=== PATIENT | female | born 1950 | race Caucasian/White ===

== ENCOUNTER 2018-10-16 08:05 | Day surgery (SDC) | payer MEDICARE, MEDICAID ==
[~2018-10-16] VITALS: Ht 160 cm; Wt 59.9 kg
[~2018-10-16 08:05] MED LIST: ALLERGY MEDICAT25 MG PO; ASPIR-LOW81 MG PO; ATORVASTATIN CA20 MG PO; BLEPH-105 ML OD; FISH OIL500 MG PO; NORCO 5-325 TA1 EACH PO; RED YEAST RICE600 M1 PO
--- NOTE | 2018-10-16 10:00 | NUR ---
10/16/18 1000 Sadia Collins 9418-PATIENT ARRIVED TO PACU ON 3L NC PLACED ON 2L. PATIENT REACTIVE TO VOICE OPENING EYES VERY DROWSY BACK TO SLEEP. ABDOMEN SOFT. RR EVEN.
--- NOTE | 2018-10-16 10:59 | NUR ---
ICED WATER AND COFFEE W/LID GIVEN. CALL LIGHT W/IN REACH. PATIENT'S PARTNER @ BS.
--- NOTE | 2018-10-16 11:38 | NUR ---
LE 1120: PATIENT'S PARTNER COMES TO THE NURSE'S STATION AND REPORTS PATIENT BELIVES SHE IS MUCH MORE AWAKE AND WOULD LIKE TO GET DRESSED. PATIENT IS NOTED TO BE SITTING UP IN BED, EYES WIDE OPEN, DRINKING HER COFFEE. DISCHARGE INSTRUCTIONS ARE GIVEN AND PATIENT VERBALIZES UNDERSTANDING. PATIENT STANDS AT THE BEDSIDE AND DENIES DIZZINESS. PATIENT DRESSES SELF AND TRANSFERS SELF TO AND THEN TO PERSONAL VEHICLE AND DOES THAT WELL AND IS DC HOME.
--- NOTE | 2018-10-17 05:38 | OR ---
[facility] [address] [place], [place] [address] Signed DATE OF OPERATION: 10/16/2018 SURGEON: Johnnie Estrada MD PREOPERATIVE DIAGNOSES: 1. Personal history of colonic polyps in 2015. 2. Diverticulosis. 3. Brother of colon cancer in his 50s. POSTOPERATIVE DIAGNOSIS: 1. 4 mm polyps at 38 cm, 32 cm, and 18 cm (x2). 2. Minimal internal anal skin tags. PROCEDURE: Colonoscopy with hot biopsy. ESTIMATED BLOOD LOSS: None. INDICATIONS: Sendy is a 67-year-old female, who returns now for followup colonoscopy. She had multiple colonic polyps removed in 2014. It took two colonoscopies to clear her polyps. In addition, her brother in his 50s from his colon cancer. Sendy was said to have diverticulosis as well. In the meantime, she says she is doing fine. She has no lower GI complaints. She is now retired and says she is doing great. I gave Sendy a pamphlet on colonoscopy and she understands the nature of that test along with the risks including, but not limited to gas bloating, crampy abdominal pain, bleeding, perforation, requiring surgery, and missed diagnosis. She also understands the need for IV conscious sedation. She had expressed understanding and wished to proceed. PROCEDURE NOTE: Sendy was taken into our endoscopy suite and placed in the left lateral decubitus position. She was given IV sedation with divided doses of 7 mg of Versed and 150 mcg of fentanyl. A digital rectal exam was performed and this was unremarkable. The adult colonoscope was introduced and advanced all around into the cecum under direct visualization of camera without difficulty. Her prep was quite good. The scope was slowly withdrawn. We took pictures throughout for photodocumentation. The appendiceal orifice and the ileocecal valve were easily visualized. The above-mentioned polyps were removed with the help of hot biopsy forceps. We could see other polypectomy sites that have since scarred. The scope had been retroflexed in the rectum. She has several Electronically Signed By: JOHNNIE ESTRADA MD 10/17/18 0538 PATIENT NAME: SENDY NIXON OPERATIVE REPORT DATE OF : 48 REPORT #: [id number] PHYSICIAN: JOHNNIE ESTRADA MD PCP: TIM BOWIE PA-C REPORT IS CONFIDENTIAL AND NOT TO BE RELEASED WITHOUT AUTHORIZATION [facility] [address] [place] [id number] Signed small internal anal skin tags. After this, the gas was suctioned out colonoscope removed. On this occasion, we did not specifically see any diverticula. Sendy tolerated the procedure quite well. RECOMMENDATIONS: I will see Sendy in my office in 7 to 14 days to review her results. It looks like Sendy is going to need colonoscopy every 5 years due to her family and personal history. Johnnie Estrada MD ALB/MODL /[id number] cc: MO Lee MD Copies: JOHNNIE ESTRADA MD ~ Electronically Signed By: JOHNNIE ESTRADA MD 10/17/18 0538 PATIENT NAME: SENDY NIXON OPERATIVE REPORT DATE OF : 48 REPORT #: [id number] PHYSICIAN: JOHNNIE ESTRADA MD PCP: TIM BOWIE PA-C REPORT IS CONFIDENTIAL AND NOT TO BE RELEASED WITHOUT AUTHORIZATION
== END 2018-10-16 11:25 | disposition home or self-care (01) ==
LOC: DS 08:05 → OPS 08:05 → DS 09:45 → OPS 11:25
PROVIDERS: Colon & Rectal Surgery
PROC: 0DBE8ZZ Excision of Large Intestine, Via Natural or Artificial Opening Endoscopic (ICD-10-PCS; principal; 2018-10-16 09:45)
DX: Z12.11 Encounter for screening for malignant neoplasm of colon (principal); K63.5 Polyp of colon; K64.8 Other hemorrhoids; I25.10 Atherosclerotic heart disease of native coronary artery without angina pectoris; E78.5 Hyperlipidemia, unspecified; M19.90 Unspecified osteoarthritis, unspecified site; F17.210 Nicotine dependence, cigarettes, uncomplicated; Z86.010 Personal history of colon polyps; Z80.0 Family history of malignant neoplasm of digestive organs; Z79.899 Other long term (current) drug therapy; Z79.82 Long term (current) use of aspirin
CPT/HCPCS: 99153; G0500; J2250; J3010; J7120

== ENCOUNTER 2019-08-11 08:31 | Emergency (ER) | payer MEDICARE, MEDICAID ==
[~2019-08-11] VITALS: Ht 160 cm; Wt 53.1 kg
--- OUTSIDE RECORDS SUMMARY | ~2019-08-11 | XMS | Encounter Summary ---
Demographics + + + | Address | [address] | | | [place] [address] | + + + | Home Phone | | + + + | Preferred Language | Unknown | + + + | Marital Status | Unknown | + + + | Jain Affiliation | 1009 | + + + | Race | Unknown | + + + | Ethnic Group | Unknown | + + + Author + + + | Author | [facility] | | | and [place] | + + + | Organization | [facility] | | | and [place] | + + + | Address | Unknown | + + + | Phone | Unavailable | + + + Support + + + + + | Name | Relationship | Address | Phone | + + + + + | Marquez Schulte | ECON | [address] | | | | | [place] | | | | | [address] | | + + + + + Care Team Providers + +------+ + | Care Town Justice Name | Role | Phone | + +------+ + PCP | Unavailable | + +------+ + Encounter Details +--------+ + + + + | Date | Type | Department | Care Team | Description | +--------+ + + + + | 03/18/ | Hospital | [facility] | Conversion | Pain | | 2017 | Encounter | CONVERSION [address] | Transaction, | | | | [address] | Provider Unknown | | | | | [place] | [phone] | | | | | [phone] | | | | | | [phone] | | | +--------+ + + + + Social History + +-------+ +--------+------+ | Tobacco Use | Types | Packs/Day | Years | Date | | | | | Used | | + +-------+ +--------+------+ | Never Assessed | | | | | + +-------+ +--------+------+ + + + | Sex Assigned at | Date Recorded | | | | + + + | Not on file | | + + + + + + + | Job Start Date | Occupation | Industry | + + + + | Not on file | Not on file | Not on file | + + + + + + + + | Travel History | Travel Start | Travel End | + + + + + + | No recent travel history available. | + + documented as of this encounter Plan of Treatment +--------+ + + + + | Date | Type | Specialty | Care Team | Description | +--------+ + + + + | 08/26/ | Appointment | Radiology | Krishna Omer MD | | | 2020 | | | [address] | | | | | | [place] | | | | | | [address] | | | | | | | | +--------+ + + + + | 08/28/ | Appointment | Infusion Therapy | Krishna Omer MD | | | 2019 | | | [address] | | | | | | [place] | | | | | | [address] | | | | | | | | +--------+ + + + + | 08/28/ | Office | Oncology | Krishna Omer MD | | | 2019 | Visit | | [address] | | | | | | [place] | | | | | | [address] | | | | | | | | +--------+ + + + + | 08/29/ | Appointment | Infusion Therapy | Krishna Omer MD | | | 2019 | | | [address] | | | | | | [place] | | | | | | [address] | | | | | | | | +--------+ + + + + | 09/05/ | Appointment | Infusion Therapy | Krishna Omer MD | | | 2019 | | | [address] | | | | | | [place] | | | | | | [address] | | | | | | | | +--------+ + + + + | 09/05/ | Office | Oncology | Krishna Omer MD | | | 2019 | Visit | | [address] | | | | | | [place] | | | | | | [address] | | | | | | | | | | | | Natalie Kerr | | | | | | ADRIENNE Iqbal [address] | [address] | | | | | | [place] [address] | | | | | | [phone] | | | | | | | | +--------+ + + + + | 09/19/ | Appointment | Infusion Therapy | Krishna Omer MD | | | 2019 | | | [address] | | | | | | [place] | | | | | | [address] | | | | | | | | +--------+ + + + + | 09/19/ | Office | Oncology | Krishna Omer MD | | | 2019 | Visit | | [address] | | | | | | [place] | | | | | | [address] | | | | | | | | +--------+ + + + + | 09/19/ | Appointment | Infusion Therapy | Krishna Omer MD | | | 2019 | | | [address] | | | | | | [place] | | | | | | [address] | | | | | | | | +--------+ + + + + | 10/10/ | Appointment | Infusion Therapy | Krishna Omer MD | | | 2019 | | | [address] | | | | | | [place] | | | | | | [address] | | | | | | | | +--------+ + + + + | 10/10/ | Office | Oncology | Krishna Omer MD | | | 2019 | Visit | | [address] | | | | | | [place] | | | | | | [address] | | | | | | | | | | | | Sushma Orta, | | | | | | [employer] [address] | | | | [address] | | | | | | [place] [address] | | | | | | [phone] | | | | | | | | +--------+ + + + + | 10/10/ | Appointment | Infusion Therapy | Krishna Omer MD | | | 2019 | | | [address] | | | | | | [place] | | | | | | [address] | | | | | | | | +--------+ + + + + | 10/30/ | Appointment | Infusion Therapy | Krishna Omer MD | | | 2019 | | | [address] | | | | | | [place] | | | | | | [address] | | | | | | | | +--------+ + + + + | 10/30/ | Office | Oncology | Krishna Omer MD | | | 2019 | Visit | | [address] | | | | | | [place] | | | | | | [address] | | | | | | | | +--------+ + + + + | 10/30/ | Appointment | Infusion Therapy | Krishna Omer MD | | | 2019 | | | [address] | | | | | | [place] | | | | | | [address] | | | | | | | | +--------+ + + + + documented as of this encounter Procedures + +--------+ + + + | Procedure Name | Priori | Date/Time | Associated Diagnosis | Comments | | | ty | | | | + +--------+ + + + | CT ANGIOGRAPHY | Routin | 02/17/2017 | | Results for this | | CORONARY ARTERIES W | e | 7:50 PM | | procedure are in the | | CONTRAST W 3D | | PDT | | results section. | + +--------+ + + + documented in this encounter Results CT Angiogram Coronary Arteries w Cont 3D (02/17/2017 7:50 PM PDT) + + | Specimen | + + | | + + + + + | Narrative | Performed At | + + + | This is a non-reportable procedure without a radiologist report and | | | is used for image storage only | | + + + + + | Procedure Note | + + | Apolinar Poole - 03/28/2019 9:32 AM PDT This is a non-reportable procedure | | without a radiologist report and isused for image storage only | + + documented in this encounter Visit Diagnoses + + | Diagnosis | + + | Pain Generalized pain | + + documented in this encounter"
--- OUTSIDE RECORDS SUMMARY | ~2019-08-11 | XMS | Encounter Summary ---
Demographics + + + | Address | [address] | | | [place] [address] | + + + | Home Phone | | + + + | Preferred Language | Unknown | + + + | Marital Status | Unknown | + + + | Sabianist Affiliation | 1009 | + + + | Race | Unknown | + + + | Ethnic Group | Unknown | + + + Author + + + | Author | [facility] | | | and [place] | + + + | Organization | [facility] | | | and [place] | [...] [place] | | | | | [address] | | + + + + + Care Team Providers + +------+ + | Care Call Centre Supervisor Name | Role | Phone | + +------+ + | Daniela Wei | PCP | | | PA-C | | | + +------+ + Encounter Details +--------+ + + + + | Date | Type | Department | Care Team | Description | +--------+ + + + + | 07/30/ | Orders Only | [facility] | Zulma Dorantes | Malignant neoplasm | | 2019 | | [address] | I, Chief Privacy Officer | of left lung, | | | | [facility] [place] | | unspecified part of | | | | [phone] | | lung (HCC) | | | | [phone] | | | +--------+ + + + + Social History + +-------+ +--------+------+ | Tobacco Use | Types | Packs/Day | Years | Date | | | | | Used | | + +-------+ +--------+------+ | Current Every Day | | | | | | Smoker | | | | | + +-------+ +--------+------+ + + | Comments: 4 ciggs daily | + + + + + | Sex Assigned at [...] [place] | | | | | | [address] | | | | | | | | +--------+ + + + + | 08/28/ | Appointment | Infusion Therapy | Krishna Omer MD | | | 2019 | | | [address] | | | | | | [place] | | | | | | [address] | | | | | | | | +--------+ + + + + | 08/28/ | Office | Oncology | Krishna Omer MD | | | 2019 | Visit | | [address] | | | | | | [place] | | | | | | [address] | | | | | | | | +--------+ + + + + | 08/29/ | Appointment | Infusion Therapy | Krishna Omer MD | | | 2019 | | | [address] | | | | | | [place] | | | | | | [address] | | | | | | | | +--------+ + + + + | 09/05/ | Appointment | Infusion Therapy | Krishna Omer MD | | | 2019 | | | [address] | | | | | | [place] | | | | | | [address] | | | | | | | | +--------+ + + + + | 09/05/ | Office | Oncology | Krishna Omer MD | | | 2019 | Visit | | [address] | | | | | | [place] | | | | | | [address] | | | | | | | | | | | | Natalie Kerr | | | | | | CARMEN IqbalP [address] | [address] | | | | | | [place] [address] | | | | | | [phone] | | | | | | | | +--------+ + + + + | 09/19/ | Appointment | Infusion Therapy | Krishna Omer MD | | | 2019 | | | [address] | | | | | | [place] | | | | | | [address] | | | | | | | | +--------+ + + + + | 09/19/ | Office | Oncology | Krishna Omer MD | | | 2019 | Visit | | [address] | | | | | | [place] | | | | | | [address] | | | | | | | | +--------+ + + + + | 09/19/ | Appointment | Infusion Therapy | Krishna Omer MD | | | 2019 | | | [address] | | | | | | [place] | | | | | | [address] | | | | | | | | +--------+ + + + + | 10/10/ | Appointment | Infusion Therapy | Krishna Omer MD | | | 2019 | | | [address] | | | | | | [place] | | | | | | [address] | | | | | | | | +--------+ + + + + | 10/10/ | Office | Oncology | Krishna Omer MD | | | 2019 | Visit | | [address] | | | | | | [place] | | | | | | [address] | | | | | | | | | | | | Sushma Orta, | | | | | | PRODUCTION WORKER [address] | | | | | | [place] [address] | | | | | | [phone] | | | | | | | | +--------+ + + + + | 10/10/ | Appointment | Infusion Therapy | Krishna Omer MD | | | 2019 | | | [address] | | | | | | [place] | | | | | | [address] | | | | | | | | +--------+ + + + + | 10/30/ | Appointment | Infusion Therapy | Krishna Omer MD | | | 2019 | | | [address] | | | | | | [place] | | | | | | [address] | | | | | | | | +--------+ + + + + | 10/30/ | Office | Oncology | Krishna Omer MD | | | 2019 | Visit | | [address] | | | | | | [place] | | | | | | [address] | | | | | | | | +--------+ + + + + | 10/30/ | Appointment | Infusion Therapy | Krishna Omer MD | | | 2020 | | | [address] | | | | | | [place] | | | | | | [address] | | | | | | | | +--------+ + + + + documented as of this encounter Procedures + +--------+ + + + | Procedure Name | Priori | Date/Time | Associated Diagnosis | Comments | | | ty | | | | + +--------+ + + + | CBC WITH | Routin | 07/30/2019 | Malignant neoplasm | Results for this | | DIFFERENTIAL | e | 9:54 AM | of left lung, | procedure are in the | | | | PST | unspecified part of | results section. | | | | | lung (HCC) | | + +--------+ + + + | COMPREHENSIVE | Routin | 07/30/2019 | Malignant neoplasm | Results for this | | METABOLIC PANEL | e | 9:54 AM | of left lung, | procedure are in the | | | | PST | unspecified part of | results section. | | | | | lung (HCC) | | + +--------+ + + + documented in this encounter Results CBC with Differential (07/30/2019 9:54 AM PST) + + + + + + | Component | Value | Ref Range | Performed | Pathologist | | | | | At | Signature | + + + + + + | WBC | 11.45 (H) | 3.80 - 11.00 | REFERENCE | | | | | K/uL | LAB | | | | | | [facility] | | | | | | [facility] | | + + + + + + | RBC | 4.23 | 3.70 - 5.10 | REFERENCE | | | | | M/uL | LAB | | | | | | [facility] | | | | | | [facility] | | + + + + + + | Hemoglobin | 14.9 | 11.3 - 15.5 | REFERENCE | | | | | g/dL | LAB | | | | | | [facility] | | | | | | [facility] | | + + + + + + | Hematocrit | 45.3 | 34.0 - 46.0 % | REFERENCE | | | | | | LAB | | | | | | [facility] | | | | | | [facility] | | + + + + + + | MCV | 107.0 (H) | 80.0 - 100.0 fl | REFERENCE | | | | | | LAB | | | | | | [facility] | | | | | | [facility] | | + + + + + + | MCH | 35.1 (H) | 27.0 - 34.0 pg | REFERENCE | | | | | | LAB | | | | | | [facility] | | | | | | [facility] | | + + + + + + | MCHC | 32.8 | 32.0 - 35.5 | REFERENCE | | | | | g/dL | LAB | | | | | | [facility] | | | | | | [facility] | | + + + + + + | RDW-SD | 54.3 (H) | 37 - 53 fl | REFERENCE | | | | | | LAB | | | | | | [facility] | | | | | | [facility] | | + + + + + + | Platelet | 310 | 150 - 400 K/uL | REFERENCE | | | Count | | | LAB | | | | | | [facility] | | | | | | [facility] | | + + + + + + | MPV | 9.2 | fl | REFERENCE | | | | | | LAB | | | | | | [facility] | | | | | | [facility] | | + + + + + + | Diff Type | AUTOMATED | | REFERENCE | | | | | | LAB | | | | | | [facility] | | | | | | [facility] | | + + + + + + | % | 68.60 | % | REFERENCE | | | Neutrophils | | | LAB | | | | | | [facility] | | | | | | [facility] | | + + + + + + | % | 19.60 | % | REFERENCE | | | Lymphocytes | | | LAB | | | | | | [facility] | | | | | | [facility] | | + + + + + + | Monocyte % | 9.59 | % | REFERENCE | | | | | | LAB | | | | | | [facility] | | | | | | [facility] | | + + + + + + | Eosinophils | 1.37 | % | REFERENCE | | | % | | | LAB | | | | | | [facility] | | | | | | [facility] | | + + + + + + | Basophils % | 0.84 | % | REFERENCE | | | | | | LAB | | | | | | [facility] | | | | | | [facility] | | + + + + + + | Neutrophils | 7.86 (H) | 1.90 - 7.40 | REFERENCE | | | , Absolute | | K/uL | LAB | | | | | | [facility] | | | | | | [facility] | | + + + + + + | Absolute | 2.25 | 1.00 - 3.90 | REFERENCE | | | Lymphocytes | | K/uL | LAB | | | | | | [facility] | | | | | | [facility] | | + + + + + + | Absolute | 1.10 (H) | 0.00 - 0.80 | REFERENCE | | | Monocytes | | K/uL | LAB | | | | | | [facility] | | | | | | [facility] | | + + + + + + | Eosinophils | 0.16 | 0.00 - 0.50 | REFERENCE | | | , Absolute | | K/uL | LAB | | | | | | [facility] | | | | | | [facility] | | + + + + + + | Basophils, | 0.10 | 0.00 - 0.10 | REFERENCE | | | Absolute | | K/uL | LAB | | | | | | [facility] | | | | | | [facility] | | + + + + + + | RBC | 1+Comment: MACRONORMAL | | REFERENCE | | | Morphology | PLT MORPHTesting | | LAB | | | | performed at [facility];[address] | | [facility] | | | | [address] | | LABORATORY | | | | [address];[place] [address] | | | | | | | | | | + + + + + + + + | Specimen | + + | Blood | + + + + + + + | Performing | Address | City/State/Zipcode | Phone Number | | Organization | | | | + + + + + | REFERENCE LAB | [address] [place] [address] | [place] [address] | [phone] | | [facility] | Blvd[address] | | | | LABORATORY | | | | + + + + + | REFER[facility] LAB | [address] [place], [place] [address]f[place] | [place] [address] | | | [facility] | Blvd[address] | | | | LABORATORY | | | | + + + + + Comprehensive Metabolic Panel (07/30/2019 9:54 AM PST) + + + + + + | Component | Value | Ref Range | Performed | Pathologist | | | | | At | Signature | + + + + + + | Na | 139 | 135 - 145 | REFERENCE | | | | | mmol/L | LAB | | | | | | [facility] | | | | | | [facility] | | + + + + + + | K | 4.2 | 3.5 - 4.9 | REFERENCE | | | | | mmol/L | LAB | | | | | | [facility] | | | | | | [facility] | | + + + + + + | Cl | 103 | 99 - 109 mmol/L | REFERENCE | | | | | | LAB | | | | | | [facility] | | | | | | [facility] | | + + + + + + | CO2 | 24 | 23 - 32 mmol/L | REFERENCE | | | | | | LAB | | | | | | [facility] | | | | | | [facility] | | + + + + + + | Anion Gap | 16 | 5 - 20 mmol/L | REFERENCE | | | | | | LAB | | | | | | [facility] | | | | | | [facility] | | + + + + + + | Glucose | 96 | 65 - 99 mg/dL | REFERENCE | | | | | | LAB | | | | | | [facility] | | | | | | [facility] | | + + + + + + | BUN | 8 | 8 - 25 mg/dL | REFERENCE | | | | | | LAB | | | | | | [facility] | | | | | | [facility] | | + + + + + + | Creatinine | 0.6 | 0.50 - 1.00 | REFERENCE | | | | | mg/dL | LAB | | | | | | [facility] | | | | | | [facility] | | + + + + + + | BUN/Creatin | 13 | | REFERENCE | | | ine Ratio | | | LAB | | | | | | [facility] | | | | | | [facility] | | + + + + + + | Calcium | 10.4 | 8.5 - 10.5 | REFERENCE | | | | | mg/dL | LAB | | | | | | [facility] | | | | | | [facility] | | + + + + + + | Protein, | 6.8 | 6.3 - 8.2 g/dL | REFERENCE | | | Total | | | LAB | | | | | | [facility] | | | | | | [facility] | | + + + + + + | Albumin | 3.6 | 3.3 - 4.8 g/dL | REFERENCE | | | | | | LAB | | | | | | [facility] | | | | | | [facility] | | + + + + + + | Globulin | 3.2 | 1.3 - 4.9 g/dL | REFERENCE | | | | | | LAB | | | | | | [facility] | | | | | | [facility] | | + + + + + + | A/G Ratio | 1.1 | 1.0 - 2.4 | REFERENCE | | | | | | LAB | | | | | | [facility] | | | | | | [facility] | | + + + + + + | BILIRUBIN, | 0.6 | 0.1 - 1.5 mg/dL | REFERENCE | | | TOTAL | | | LAB | | | | | | [facility] | | | | | | [facility] | | + + + + + + | ALK PHOS | 140 (H) | 35 - 115 U/L | REFERENCE | | | | | | LAB | | | | | | [facility] | | | | | | [facility] | | + + + + + + | AST | 36 | 10 - 45 U/L | REFERENCE | | | | | | LAB | | | | | | [facility] | | | | | | [facility] | | + + + + + + | ALT | 32 | 10 - 65 U/L | REFERENCE | | | | | | LAB | | | | | | [facility] | | | | | | [facility] | | + + + + + + | Estimated | >60Comment: GFR <60: | >60 | REFERENCE | | | GFR | CHRONIC KIDNEY DISEASE, | mL/min/1.73m2 | LAB | | | | IF FOUND OVER A 3 MONTH | | [facility] | | | | PERIOD.GFR <15: KIDNEY | | LABORATORY | | | | FAILURE.FOR | | | | | | AMERICANS, MULTIPLY THE | | | | | | CALCULATED GFR BY | | | | | | 1.210.This eGFR is | | | | | | calculated using the | | | | | | MDRD IDMS traceable | | | | | | equation.Testing | | | | | | performed at [facility];[address] | | | | | [facility] | | | | | | Blvd;[place] [address] | | | | | | | | | | + + + + + + + + | Specimen | + + | Blood | + + + + + + + | Performing | Address | City/State/Zipcode | Phone Number | | Organization | | | | + + + + + | REFERENCE LAB | [address] | [place] [address] | [phone] | | [facility] | Blvd[address] | | | | LABORATORY | | | | + + + + + | REFERENCE LAB | [address] | [place] [address] | | | [facility] | Blvd[address] | | | | LABORATORY | | | | + + + + + documented in this encounter Visit Diagnoses + + | Diagnosis | + + | Malignant neoplasm of left lung, unspecified part of lung (HCC) | + + documented in this encounter"
--- OUTSIDE RECORDS SUMMARY | ~2019-08-11 | XMS | Encounter Summary ---
Demographics + + + | Address | [address] | | | [place] [address] | + + + | Home Phone | | + + + | Preferred Language | Unknown | + + + | Marital Status | Unknown | + + + | Mosque Affiliation | 1009 | + + + | Race | Unknown | + + + | Ethnic Group | Unknown | + + + Author + + + | Author | [facility] | | | and [place] | + + + | Organization | [facility] | | | and [place] [...] [place] | | | | | [address] | | + + + + + Care Team Providers + +------+ + | Care Field Project Manager Name | Role | Phone | + +------+ + | Daniela Wei | PCP | | | PA-C | | | + +------+ + Reason for Visit + + + | Reason | Comments | + + + | Chemotherapy | | + + + Encounter Details +--------+ + + + + | Date | Type | Department | Care Team | Description | +--------+ + + + + | 08/08/ | Telephone | [facility] | Krishna Omer MD | Chemotherapy | | 2019 | | HEMATOLOGY AND | [address] | | | | | ONCOLOGY [address] [place] | | [address] | [address] | | | | | [place] | | | | | | [address] | | | | | | [phone] | | | +--------+ + + + [...] [place] | | | | | | [address] | | | | | | | | +--------+ + + + + | 08/28/ | Appointment | Infusion Therapy | Krishna Omer MD | | | 2019 | | | [address] | | | | | | [place] | | | | | | [address] | | | | | | | | +--------+ + + + + | 08/28/ | Office | Oncology | Krishna Omer MD | | | 2019 | Visit | | [address] | | | | | | [place] | | | | | | [address] | | | | | | | | +--------+ + + + + | 08/29/ | Appointment | Infusion Therapy | Krishna Omer MD | | | 2019 | | | [address] | | | | | | [place] | | | | | | [address] | | | | | | | | +--------+ + + + + | 09/05/ | Appointment | Infusion Therapy | Krishna Omer MD | | | 2019 | | | [address] | | | | | | [place] | | | | | | [address] | | | | | | | | +--------+ + + + + | 09/05/ | Office | Oncology | Krishna Omer MD | | | 2019 | Visit | | [address] | | | | | | [place] | | | | | | [address] | | | | | | | | | | | | Natalie Kerr | | | | | | CARMEN IqbalP [address] | | | | | | [address] | | | | | | [place] [address] | | | | | | [phone] | | | | | | | | +--------+ + + + + | 09/19/ | Appointment | Infusion Therapy | Krishna Omer MD | | | 2019 | | | [address] | | | | | | [place] | | | | | | [address] | | | | | | | | +--------+ + + + + | 09/19/ | Office | Oncology | Krishna Omer MD | | | 2019 | Visit | | [address] | | | | | | [place] | | | | | | [address] | | | | | | | | +--------+ + + + + | 09/19/ | Appointment | Infusion Therapy | Krishna Omer MD | | | 2019 | | | [address] | | | | | | [place] | | | | | | [address] | | | | | | | | +--------+ + + + + | 10/10/ | Appointment | Infusion Therapy | Krishna Omer MD | | | 2019 | | | [address] | | | | | | [place] | | | | | | [address] | | | | | | | | +--------+ + + + + | 10/10/ | Office | Oncology | Krishna Omer MD | | | 2019 | Visit | | [address] | | | | | | [place] | | | | | | [address] | | | | | | | | | | | | Sushma Orta, | | | | | | ADRIENNE [address] | | | | | [address] | | | | | | [place] [address] | | | | | | [phone] | | | | | | | | +--------+ + + + + | 10/10/ | Appointment | Infusion Therapy | Krishna Omer MD | | | 2019 | | | [address] | | | | | | [place] | | | | | | [address] | | | | | | | | +--------+ + + + + | 10/30/ | Appointment | Infusion Therapy | Krishna Omer MD | | | 2019 | | | [address] | | | | | | [place] | | | | | | [address] | | | | | | | | +--------+ + + + + | 10/30/ | Office | Oncology | Krishna Omer MD | | | 2019 | Visit | | [address] | | | | | | [place] | | | | | | [address] | | | | | | | | +--------+ + + + + | 10/30/ | Appointment | Infusion Therapy | Krishna Omer MD | | | 2019 | | | [address] | | | | | | [place] | | | | | | [phone] | | | | | | | | +--------+ + + + + documented as of this encounter Visit Diagnoses Not on filedocumented in this encounter"
--- OUTSIDE RECORDS SUMMARY | ~2019-08-11 | XMS | Encounter Summary ---
Demographics + + + | Address | [address] | | | [place] [address] | + + + | Home Phone | | + + + | Preferred Language | Unknown | + + + | Marital Status | Unknown | + + + | Shinto Affiliation | 1009 | + + + | Race | Unknown | + + + | Ethnic Group | Unknown | + + + Author + + + | Author | [facility] | | | and [place] | + + + | Organization | [facility] | | | and [place] | [...] [place] | | | | | [address] | | + + + + + Care Team Providers + +------+ + | Care Stogie Packer Name | Role | Phone | + +------+ + | Daniela Wei | PCP | | | PA-C | | | + +------+ + Encounter Details +--------+ + + + + | Date | Type | Department | Care Team | Description | +--------+ + + + + | 03/24/ | Orders Only | [facility] | Conversion | | | 2017 | | CONVERSION [address] | Transaction, | | | | | [address] | Provider Unknown | | | | | [place], [place] | [phone] | | | | | [phone] | | | | | | [phone] | | | +--------+ + + + [...] [place] | | | | | | [address] | | | | | | | | +--------+ + + + + | 08/28/ | Appointment | Infusion Therapy | Krishna Omer MD | | | 2019 | | | [address] | | | | | | [place] | | | | | | [address] | | | | | | | | +--------+ + + + + | 08/28/ | Office | Oncology | Krishna Omer MD | | | 2019 | Visit | | [address] | | | | | | [place] | | | | | | [address] | | | | | | | | +--------+ + + + + | 08/29/ | Appointment | Infusion Therapy | Krishna Omer MD | | | 2019 | | | [address] | | | | | | [place] | | | | | | [address] | | | | | | | | +--------+ + + + + | 09/05/ | Appointment | Infusion Therapy | Krishna Omer MD | | | 2019 | | | [address] | | | | | | [place] | | | | | | [address] | | | | | | | | +--------+ + + + + | 09/05/ | Office | Oncology | Krishna Omer MD | | | 2019 | Visit | | [address] | | | | | | [place] | | | | | | [address] | | | | | | | | | | | | Natalie Kerr | | | | | | ADRIENNE Iqbal [address] | | | | | | [address] | | | | | | [place] [address] | | | | | | [phone] | | | | | | | | +--------+ + + + + | 09/19/ | Appointment | Infusion Therapy | Krishna Omer MD | | | 2019 | | | [address] | | | | | | [place] | | | | | | [address] | | | | | | | | +--------+ + + + + | 09/19/ | Office | Oncology | Krishna Omer MD | | | 2019 | Visit | | [address] | | | | | | [place] | | | | | | [address] | | | | | | | | +--------+ + + + + | 09/19/ | Appointment | Infusion Therapy | Krishna Omer MD | | | 2019 | | | [address] | | | | | | [place] | | | | | | [address] | | | | | | | | +--------+ + + + + | 10/10/ | Appointment | Infusion Therapy | Krishna Omer MD | | | 2019 | | | [address] | | | | | | [place] | | | | | | [address] | | | | | | | | +--------+ + + + + | 10/10/ | Office | Oncology | Krishna Omer MD | | | 2019 | Visit | | [address] | | | | | | [place] | | | | | | [address] | | | | | | | | | | | | Sushma Orta, | | | | | | JEWELRY FACER [address] | | | | [address] | | | | | | [place] [address] | | | | | | [phone] | | | | | | | | +--------+ + + + + | 10/10/ | Appointment | Infusion Therapy | Krishna Omer MD | | | 2019 | | | [address] | | | | | | [place] | | | | | | [address] | | | | | | | | +--------+ + + + + | 10/30/ | Appointment | Infusion Therapy | Krishna Omer MD | | | 2019 | | | [address] | | | | | | [place] | | | | | | [address] | | | | | | | | +--------+ + + + + | 10/30/ | Office | Oncology | Krishna Omer MD | | | 2019 | Visit | | [address] | | | | | | [place] | | | | | | [address] | | | | | | | | +--------+ + + + + | 10/30/ | Appointment | Infusion Therapy | Krishna Omer MD | | | 2019 | | | [address] | | | | | | [place] | | | | | | [address] | | | | | | | | +--------+ + + + + documented as of this encounter Visit Diagnoses Not on filedocumented in this encounter"
--- OUTSIDE RECORDS SUMMARY | ~2019-08-11 | XMS | Encounter Summary ---
Demographics + + + | Address | [address] | | | [place] [address] | + + + | Home Phone | | + + + | Preferred Language | Unknown | + + + | Marital Status | Unknown | + + + | Caodaism Affiliation | 1009 | + + + | Race | Unknown | + + + | Ethnic Group | Unknown | + + + Author + + + | Author | [facility] | | | and [place] | + + + | Organization | [facility] | | | and [place] | + [...] [place] | | | | | [address] | | + + + + + Care Team Providers + +------+ + | Care Lumber Grader Name | Role | Phone | + [...] + + | 08/08/ | Telephone | [facility] | Krishna Omer MD | Chemotherapy | | 2019 | | HEMATOLOGY AND | [address] | | | | | ONCOLOGY [address] | [place] | | | | | [address] | [address] | | | | | [place] | | | | | | [address] | | | | | | [phone] | | | +--------+ + + + [...] [place] | | | | | | [address] | | | | | | | | +--------+ + + + + | 08/28/ | Appointment | Infusion Therapy | Krishna Omer MD | | | 2019 | | | [address] | | | | | | [place] | | | | | | [address] | | | | | | | | +--------+ + + + + | 08/28/ | Office | Oncology | Krishna Omer MD | | | 2019 | Visit | | [address] | | | | | | [place] | | | | | | [address] | | | | | | | | +--------+ + + + + | 08/29/ | Appointment | Infusion Therapy | Krishna Omer MD | | | 2019 | | | [address] | | | | | | [place] | | | | | | [address] | | | | | | | | +--------+ + + + + | 09/05/ | Appointment | Infusion Therapy | Krishna Omer MD | | | 2019 | | | [address] | | | | | | [place] | | | | | | [address] | | | | | | | | +--------+ + + + + | 09/05/ | Office | Oncology | Krishna Omer MD | | | 2019 | Visit | | [address] | | | | | | [place] | | | | | | [address] | | | | | | | | | | | | Natalie Kerr | | | | | | CARMEN IqbalP [address] | | | | | | [address] | | | | | | [place] [address] | | | | | | [phone] | | | | | | | | +--------+ + + + + | 09/19/ | Appointment | Infusion Therapy | Krishna Omer MD | | | 2019 | | | [address] | | | | | | [place] | | | | | | [address] | | | | | | | | +--------+ + + + + | 09/19/ | Office | Oncology | Krishna Omer MD | | | 2019 | Visit | | [address] | | | | | | [place] | | | | | | [address] | | | | | | | | +--------+ + + + + | 09/19/ | Appointment | Infusion Therapy | Krishna Omer MD | | | 2019 | | | [address] | | | | | | [place] | | | | | | [address] | | | | | | | | +--------+ + + + + | 10/10/ | Appointment | Infusion Therapy | Krishna Omer MD | | | 2019 | | | [address] | | | | | | [place] | | | | | | [address] | | | | | | | | +--------+ + + + + | 10/10/ | Office | Oncology | Krishna Omer MD | | | 2019 | Visit | | [address] | | | | | | [place] | | | | | | [address] | | | | | | | | | | | | Sushma Orta, | | | | | | ADRIENNE [address] | | | | | | [address] | | | | | | [place] [address] | | | | | | [phone] | | | | | | | | +--------+ + + + + | 10/10/ | Appointment | Infusion Therapy | Krishna Omer MD | | | 2019 | | | [address] | | | | | | [place] | | | | | | [address] | | | | | | | | +--------+ + + + + | 10/30/ | Appointment | Infusion Therapy | Krishna Omer MD | | | 2019 | | | [address] | | | | | | [place] | | | | | | [address] | | | | | | | | +--------+ + + + + | 10/30/ | Office | Oncology | Krishna Omer MD | | | 2019 | Visit | | [address] | | | | | | [place] | | | | | | [address] | | | | | | | | +--------+ + + + + | 10/30/ | Appointment | Infusion Therapy | Krishna Omer MD | | | 2019 | | | [address] | | | | | | [place] | | | | | | [phone] | | | | | | | | +--------+ + + + + documented as of this encounter Visit Diagnoses Not on filedocumented in this encounter"
--- OUTSIDE RECORDS SUMMARY | ~2019-08-11 | XMS | Encounter Summary ---
Demographics + + + | Address | [address] | | | [place] [address] | + + + | Home Phone | | + + + | Preferred Language | Unknown | + + + | Marital Status | Unknown | + + + | Latter-Day Affiliation | 1009 | + + + | Race | Unknown | + + + | Ethnic Group | Unknown | + + + Author + + + | Author | [facility] | | | and [place] | + + + | Organization | [facility] | | | and [place] [...] [place] | | | | | [address] | | + + + + + Care Team Providers + +------+ + | Care Manager Water Wastewater Name | Role | Phone | + +------+ + PCP | Unavailable | + +------+ + Encounter Details +--------+ + + + + | Date | Type | Department | Care Team | Description | +--------+ + + + + | 03/18/ | Hospital | [facility] | Conversion | Pain | | 2017 | Encounter | CONVERSION [address] | Transaction, | | | | | [address] | Provider Unknown | | | | | [place] | [phone] | | | | | [phone] | | | | | | [phone] | | | +--------+ + + + [...] [place] | | | | | | [address] | | | | | | | | +--------+ + + + + | 08/28/ | Appointment | Infusion Therapy | Krishna Omer MD | | | 2019 | | | [address] | | | | | | [place] | | | | | | [address] | | | | | | | | +--------+ + + + + | 08/28/ | Office | Oncology | Krishna Omer MD | | | 2019 | Visit | | [address] | | | | | | [place] | | | | | | [address] | | | | | | | | +--------+ + + + + | 08/29/ | Appointment | Infusion Therapy | Krishna Omer MD | | | 2019 | | | [address] | | | | | | [place] | | | | | | [address] | | | | | | | | +--------+ + + + + | 09/05/ | Appointment | Infusion Therapy | Krishna Omer MD | | | 2019 | | | [address] | | | | | | [place] | | | | | | [address] | | | | | | | | +--------+ + + + + | 09/05/ | Office | Oncology | Krishna Omer MD | | | 2019 | Visit | | [address] | | | | | | [place] | | | | | | [address] | | | | | | | | | | | | Natalie Kerr | | | | | | ADRIENNE Iqbal [address] | | | [address] | | | | | | [place] [address] | | | | | | [phone] | | | | | | | | +--------+ + + + + | 09/19/ | Appointment | Infusion Therapy | Krishna Omer MD | | | 2019 | | | [address] | | | | | | [place] | | | | | | [address] | | | | | | | | +--------+ + + + + | 09/19/ | Office | Oncology | Krishna Omer MD | | | 2019 | Visit | | [address] | | | | | | [place] | | | | | | [address] | | | | | | | | +--------+ + + + + | 09/19/ | Appointment | Infusion Therapy | Krishna Omer MD | | | 2019 | | | [address] | | | | | | [place] | | | | | | [address] | | | | | | | | +--------+ + + + + | 10/10/ | Appointment | Infusion Therapy | Krishna Omer MD | | | 2019 | | | [address] | | | | | | [place] | | | | | | [address] | | | | | | | | +--------+ + + + + | 10/10/ | Office | Oncology | Krishna Omer MD | | | 2019 | Visit | | [address] | | | | | | [place] | | | | | | [address] | | | | | | | | | | | | Sushma Orta, | | | | | | ENVIRONMENTAL WEB CRAWLER [address] | | | | | [address] | | | | | | [place] [address] | | | | | | [phone] | | | | | | | | +--------+ + + + + | 10/10/ | Appointment | Infusion Therapy | Krishna Omer MD | | | 2019 | | | [address] | | | | | | [place] | | | | | | [address] | | | | | | | | +--------+ + + + + | 10/30/ | Appointment | Infusion Therapy | Krishna Omer MD | | | 2019 | | | [address] | | | | | | [place] | | | | | | [address] | | | | | | | | +--------+ + + + + | 10/30/ | Office | Oncology | Krishna Omer MD | | | 2019 | Visit | | [address] | | | | | | [place] | | | | | | [address] | | | | | | | | +--------+ + + + + | 10/30/ | Appointment | Infusion Therapy | Krishna Omer MD | | | 2019 | | | [address] | | | | | | [place] | | | | | | [address] | | | | | | | | +--------+ + + + + documented as of this encounter Procedures + +--------+ + + + | Procedure Name | Priori | Date/Time | Associated Diagnosis | Comments | | | ty | | | | + +--------+ + + + | XR CHEST 1 VIEW | Routin | 02/11/2017 | | Results for this | | | e | 7:49 PM | | procedure are in the | | | | PDT | | results section. | + +--------+ + + + documented in this encounter Results XR Chest 1 Vw (02/11/2017 7:49 PM PDT) + + | Specimen | [...]
--- OUTSIDE RECORDS SUMMARY | ~2019-08-11 | XMS | Encounter Summary ---
Demographics + + + | Address | [address] | | | [place] [address] | + + + | Home Phone | | + + + | Preferred Language | Unknown | + + + | Marital Status | Unknown | + + + | Adventist Affiliation | 1009 | + + + | Race | Unknown | + + + | Ethnic Group | Unknown | + + + Author + + + | Author | [facility] | | | and [place] | + + + | Organization | [facility] | | | and [place] [...] [place] | | | | | [address] | | + + + + + Care Team Providers + +------+ + | Care User Interface Artist Name | Role | Phone | + +------+ + | Daniela Wei | PCP | | | PA-C | | | + +------+ + Encounter Details +--------+ + + + + | Date | Type | Department | Care Team | Description | +--------+ + + + + | 03/24/ | Orders Only | [facility] | Mayco Lange MD | | | 2017 | | [address] | [address] | | | | | [facility] [place] | [place] | | | | | [address] | [address] | | | | | [phone] | | | +--------+ + + + [...] [place] | | | | | | [address] | | | | | | | | +--------+ + + + + | 08/28/ | Appointment | Infusion Therapy | Krishna Omer MD | | | 2019 | | | [address] | | | | | | [place] | | | | | | [address] | | | | | | | | +--------+ + + + + | 08/28/ | Office | Oncology | Krishan Omer MD | | | 2019 | Visit | | [address] | | | | | | [place] | | | | | | [address] | | | | | | | | +--------+ + + + + | 08/29/ | Appointment | Infusion Therapy | Krishna Omer MD | | | 2019 | | | [address] | | | | | | [place] | | | | | | [address] | | | | | | | | +--------+ + + + + | 09/05/ | Appointment | Infusion Therapy | Krishna Omer MD | | | 2019 | | | [address] | | | | | | [place] | | | | | | [address] | | | | | | | | +--------+ + + + + | 09/05/ | Office | Oncology | Krishna Omer MD | | | 2019 | Visit | | [address] | | | | | | [place] | | | | | | [address] | | | | | | | | | | | | Natalie Kerr | | | | | | ADRIENNE Iqbal [address] | | | | [address] | | | | | | [place] [address] | | | | | | [phone] | | | | | | | | +--------+ + + + + | 09/19/ | Appointment | Infusion Therapy | Krishna Omer MD | | | 2019 | | | [address] | | | | | | [place] | | | | | | [address] | | | | | | | | +--------+ + + + + | 09/19/ | Office | Oncology | Krishna Omer MD | | | 2019 | Visit | | [address] | | | | | | [place] | | | | | | [address] | | | | | | | | +--------+ + + + + | 09/19/ | Appointment | Infusion Therapy | Krishna Omer MD | | | 2019 | | | [address] | | | | | | [place] | | | | | | [address] | | | | | | | | +--------+ + + + + | 10/10/ | Appointment | Infusion Therapy | Krishna Omer MD | | | 2019 | | | [address] | | | | | | [place] | | | | | | [address] | | | | | | | | +--------+ + + + + | 10/10/ | Office | Oncology | Krishna Omer MD | | | 2019 | Visit | | [address] | | | | | | [place] | | | | | | [address] | | | | | | | | | | | | Sushma Orta, | | | | | | GREEN ENERGY MARKETING ANALYST [address] | | | | | | [place] [address] | | | | | | [phone] | | | | | | | | +--------+ + + + + | 10/10/ | Appointment | Infusion Therapy | Krishna Omer MD | | | 2019 | | | [address] | | | | | | [place] | | | | | | [address] | | | | | | | | +--------+ + + + + | 10/30/ | Appointment | Infusion Therapy | Krishna Omer MD | | | 2019 | | | [address] | | | | | | [place] | | | | | | [address] | | | | | | | | +--------+ + + + + | 10/30/ | Office | Oncology | Krishna Omer MD | | | 2019 | Visit | | [address] | | | | | | [place] | | | | | | [address] | | | | | | | | +--------+ + + + + | 10/30/ | Appointment | Infusion Therapy | Krishna Omer MD | | | 2019 | | | [address] | | | | | | [place] | | | | | | [address] | | | | | | | | +--------+ + + + + documented as of this encounter Procedures + +--------+ + + + | Procedure Name | Priori | Date/Time | Associated Diagnosis | Comments | | | ty | | | | + +--------+ + + + | MELBA PROFILE, REFLEX | Routin | 03/24/2017 | | Results for this | | | e | 1:16 PM | | procedure are in the | | | | PDT | | results section. | + +--------+ + + + | SEDIMENTATION RATE, | Routin | 03/24/2017 | | Results for this | | AUTOMATED | e | 1:16 PM | | procedure are in the | | | | PDT | | results section. | + +--------+ + + + documented in this encounter Results MELBA Profile, Reflex (03/24/2017 1:16 PM PDT) + + + + + + | Component | Value | Ref Range | Performed | Pathologist | | | | | At | Signature | + + + + + + | MELBA | NEGATIVEComment: A | | EXTERNAL | | | | MULTIPLEX SCREEN FOR 11 | | LAB | | | | AUTOANTIBODIES (DSDNA, | | | | | | SM, RIBOSOMAL | | | | | | P,CHROMATIN, WELCOME HOSTESS, SM | | | | | | WELCOME HOSTESS, SCL-70, CENTROMERE | | | | | | B, SSA, SSB AND JENNIE-1) | | | | | | WASPERFORMED AND NO | | | | | | AUTOANTIBODIES WERE | | | | | | DETECTED. | | | | + + + + + + | ANCA Screen | <1:20Comment: REFERENCE | | EXTERNAL | | | | RANGE: <1:20 | | LAB | | + + + + + + | ANCA | <0.2Comment: NEGATIVE | AI | EXTERNAL | | | Proteinase | < | | LAB | | | 3 | 1.0POSITIVE | | | | | | EQUAL TO OR | | | | | | >1.0PR3 ANTIBODY IS A | | | | | | MARKER FOR EDMAR'S | | | | | | GRANULOMATOSIS AND IS | | | | | | RARELYDETECTED IN | | | | | | MICROSCOPIC | | | | | | POLYARTERITIS.THE | | | | | | QUANTITY OF PR3 ANTIBODY | | | | | | GENERALLY PARALLELS | | | | | | DISEASE ACTIVITY,WHERE | | | | | | AN INCREASE IN DISEASE | | | | | | IS ACCOMPANIED BY | | | | | | INCREASING VALUES OFPR3 | | | | | | ANTIBODY.ANTIBODY TO PR3 | | | | | | AN ELASTINOLYTIC NEURAL | | | | | | SERINE PROTEASE, | | | | | | ISRESPONSIBLE FOR THE | | | | | | CYTOPLASMIC PATTERN OF | | | | | | ANTI NEUTROPHIL | | | | | | CYTOPLASMICANTIBODIES. | | | | + + + + + + | Myeloperoxi | <0.2Comment: NEGATIVE | AI | EXTERNAL | | | dase | < | | LAB | | | Antibody | 1.0POSITIVE | | | | | | EQUAL TO OR | | | | | | >1.0ANTIBODY TO MPO IS | | | | | | ASSOCIATED WITH ORGAN | | | | | | LIMITED VASCULITIS | | | | | | INCLUDINGNECROTIZING AND | | | | | | CRESCENTIC | | | | | | GLOMERULONEPHRITIS.THIS | | | | | | ASSAY IS USEFUL IN | | | | | | CONFIRMING MPO SPECIFIC | | | | | | ANTIBODIES IN SERATHAT | | | | | | ARE POSITIVE FOR ANTI | | | | | | NEUTROPHIL CYTOPLASMIC | | | | | | ANTIBODIES OF | | | | | | THEPERINUCLEAR | | | | | | TYPE.TYPICALLY THE LEVEL | | | | | | OF MPO ANTIBODY | | | | | | PARALLELS DISEASE | | | | | | ACTIVITIES,WHERE | | | | | | INCREASING DISEASE | | | | | | ACTIVITY IS ASSOCIATED | | | | | | WITH INCREASING | | | | | | MPOANTIBODY LEVELS. | | | | + + + + + + + + | Specimen | + + | Blood specimen | | (specimen) | + + + +---------+ + + | Performing | Address | City/State/Zipcode | Phone Number | | Organization | | | | + +---------+ + + | EXTERNAL LAB | | | | + +---------+ + + Sedimentation rate, automated (03/24/2017 1:16 PM PDT) + +-------+ + + + | Component | Value | Ref Range | Performed | Pathologist | | | | | At | Signature | + +-------+ + + + | Sed Rate | 7 | 0 - 30 mm/h | EXTERNAL | | | | | | LAB | | + +-------+ + + + + + | Specimen | + + | Blood specimen | | (specimen) | + + + +---------+ + + | Performing | Address | City/State/Zipcode | Phone Number | | Organization | | | | + +---------+ + + | EXTERNAL LAB | | | | + +---------+ + + documented in this encounter Visit Diagnoses Not on filedocumented in this encounter"
--- OUTSIDE RECORDS SUMMARY | ~2019-08-11 | XMS | Encounter Summary ---
Demographics + + + | Address | [address] | | | [place] [address] | + + + | Home Phone | | + + + | Preferred Language | Unknown | + + + | Marital Status | Unknown | + + + | Jewish Affiliation | 1009 | + + + | Race | Unknown | + + + | Ethnic Group | Unknown | + + + Author + + + | Author | [facility] | | | and Keoana | + + + | Organization | [facility] | | | and [...] [place] | | | | | [address] | | + + + + + Care Team Providers + +------+ + | Care Embedder Name | Role | Phone | + +------+ + | Daniela Wei | PCP | | | PA-C | | | + +------+ + Reason for Referral Evaluate & Treat (Routine) + + + + + + + | Status | Reason | Specialty | Diagnoses / | Referred By | Referred To | | | | | Procedures | Contact | Contact | + + + + + + + | Authorizatio | Specialty | Surgery | Diagnoses | Kan, | Gilles Martin | | n not | Services | | Malignant | MD Krishna | Jass | | Required | Required | | neoplasm of | [address] | | | | | left lung, | [id number] | | | | | unspecified | [address]VE | [place], [place] | | | | | part of lung | [place], | [address] | | | | | (HCC) | [place] [address] | Phone: | | | | | | Phone: | [phone] | | | | | | [phone] | Fax: | | | | | | Fax: | [phone] | | | | | | [phone] | | + + + + + + + Diagnostic/Screening (Routine) + +--------+ + + + + | Status | Reason | Specialty | Diagnoses / | Referred By | Referred To | | | | | Procedures | Contact | Contact | + +--------+ + + + + | Pending | | Radiology | Diagnoses | Omer, | [facility] | | Review | | | Malignant | MD Krishna | OUTPATIENT | | | | | neoplasm of | [address] | IMAGING | | | | | left lung, | [address] | [address] | | | | | unspecified | [address] | [place] | | | | | part of lung | [place], | [address] | | | | | (HCC) | [place] [address] | [place], [place] | | | | | Procedures | Phone: | [phone] | | | | | PET CT Skull | [phone] | Phone: | | | | | Base To Mid | Fax: | [phone] | | | | | Thigh | [phone] | Fax: | | | | | | | [phone] | + +--------+ + + + + Reason for Visit + + + | Reason | Comments | + + + | Consultation | Initial Oncology Consult | + + + Evaluate & Treat (Routine) + +--------+ + + + + | Status | Reason | Specialty | Diagnoses / | Referred By | Referred To | | | | | Procedures | Contact | Contact | + +--------+ + + + + | Authorizatio | | Hematology | Diagnoses | Wendy, | Kan, | | n not | | and Oncology | | Gilles Regan | MD Krishna | | Required | | / Oncology | Onc/New/Lung | [address] | | | | | [address] | [address] | [address] | | | | | OPINION LUNG | [place], | [place], | | | | | NODULE | [place] | [place] [address] | | | | | w/CERVICAL | [address] | Phone: | | | | | LYMPHADENOPA | Phone: | [phone] | | | | | THY | [phone] | Fax: | | | | | | Fax: | [phone] | | | | | | [phone] | | + +--------+ + + + + Encounter Details +--------+---------+ + + + | Date | Type | Department | Care Team | Description | +--------+---------+ + + + | 07/29/ | Office | [facility] | Krishna Omer MD | Malignant neoplasm | | 2019 | Visit | HEMATOLOGY AND | [address] | of left lung, | | | | ONCOLOGY [address] | [place] | unspecified part of | | | | [address] | [address] | lung (HCC) (Primary | | | | [place] | | Dx) | | | | [address] | | | | | | [phone] | | | +--------+---------+ + + + Social History + +-------+ [...] + + documented as of this encounter Last Filed Vital Signs + + + + + | Vital Sign | Reading | Time Taken | Comments | + + + + + | Blood Pressure | 108/70 | 07/29/2019 10:42 AM | | | | | PST | | + + + + + | Pulse | 85 | 07/29/2019 10:42 AM | | | | | PST | | + + + + + | Temperature | 35.7 C (96.3 F) | 07/29/2019 10:42 AM | | | | | PST | | + + + + + | Respiratory Rate | 16 | 07/29/2019 10:42 AM | | | | | PST | | + + + + + | Oxygen Saturation | 98% | 07/29/2019 10:42 AM | | | | | PST | | + + + + + | Inhaled Oxygen | - | - | | | Concentration | | | | + + + + + | Weight | - | - | | + + + + + | Height | - | - | | + + + + + | Body Mass Index | - | - | | + + + + + documented in this encounter Progress Notes Carol Sharma, Marker Delivery - 07/29/2019 8:30 AM PSTConsent for Carboplatin, Pemet rexed, Pembrolizumab, and Pegfilgrastim, was signed by Dr. Omer and witnessed by myself. Copy of consent was given to the patient at the time of today's visit 07/29/2019. Copy of c onsent was sent to medical records for scan. Krishna Horta MD - 07/29/2019 8:30 AM PSTFormatting of this note might be different from [facility] Initial Oncology Consultation Patient Name: SENDY NIXON Date of : 1950 Age: 68 y.o. Referring Provider: Dr. Martin PCP: Daniela Wei PA-C Dear Dr. Martin, On July 29, 2019, I had the privilege of seeing your patient, Ms. Sendy Nixon, in co nsultation. I am certain that you are fully apprised of her medical history, but I would lik e to review it here for the sake of our mutual medical records. Reason for Consultation/Cancer Diagnosis and Stage Cancer Staging Malignant neoplasm of left lung, unspecified part of lung (HCC) Staging form: Lung, AJCC 8th Edition - Clinical stage from 07/29/2019: Stage IVB (cT4, cN3, cM1c) - Signed by Krishna Omer MD on 07/29/2019 Type of lung cancer: Locally advanced or metastatic non-small cell lung cancer EGFR mutation: Negative History of Present Illness Ms. Sedny Nixon is a pleasant 68 y.o. female with a 07-jxay-lvga smoking history who was completely asymptomatic at the time of a screening CT scan that was done on May 29 which revealed a right upper lobe lung mass abutting the mediastinum measuring 7.5 x 2.2 x 7.3 cm. There were other solid nodules including a left upper lobe spiculated nodule measu ring 3.3 x 2.2 cm, a 3.4 x 2.7 cm left upper lobe lesion, and another 1.1 x 0.9 cm left uppe r lobe lesion. In the mediastinum, there was irregular enlarged lymphadenopathy in bilatera l hilar, subcarinal, bilateral lower paratracheal, subaortic, paraortic and left supraclavic ular stations. A T10 vertebral body sclerotic lesion that was suspicious for metastases. The patient underwent an excisional biopsy of a left posterior triangle deep cervical lymph node. Pathology revealed a moderately to poorly differentiated metastatic adenocarcinoma c onsistent with lung primary that was positive for CK7 and TTF-1 and negative for p63, CK 20 and thyroglobulin. PD-L1 expression was 5%. There was intact nuclear expression of MMR gen es. EGFR and BRAF were negative. The patient was seen by medical oncologist in the [place], [place] area. She states that the visit did not go well and was told by the oncologist that there were no effective treatm ent options for her. She is now here seeking a second opinion. At today's visit she feels well. She reports no new or unusual symptoms. In fact, she has been completely asymptomati c throughout this process. She thinks that recently, she has now developed a cough but she is not sure if this is from the weather. She denies any headache, blurring of vision, or di zziness. She denies any chest pain, shortness of breath, or sputum production. She denies any fevers, night sweats, or unintentional weight loss. Sendy has no other complaints today other than that listed in the review of systems. Oncology History Malignant neoplasm of left lung, unspecified part of lung (HCC) 06/03/2019 Initial Diagnosis Malignant neoplasm of left lung, unspecified part of lung (HCC) 07/29/2019 Cancer Staged Staging form: Lung, AJCC 8th Edition - Clinical stage from 07/29/2019: Stage IVB (cT4, cN3, cM1c) - Signed by Krishna Omer MD on 07/29/2019 Type of lung cancer: Locally advanced or metastatic non-small cell lung cancer EGFR mutation: Negative Medical History No Known Allergies Past Medical History: Diagnosis Date Arteriosclerosis Constipation Coronary artery disease Calcific Fainting Unconscious about 1-5 minutes Hyperlipidemia ILD (interstitial lung disease) (HCC) Nicotine dependence Osteoarthritis Peptic ulcer Pulmonary nodule Secondary polycythemia Tobacco use Smokes 1 ppd for 30+ years Past Surgical History: Procedure Laterality Date OTHER SURGICAL HISTORY OTHER SURGICAL HISTORY OTHER SURGICAL HISTORY OTHER SURGICAL HISTORY Family History Problem Relation Age of Onset Lung cancer Father Colon cancer Brother Alzheimer's disease Mother Social History Socioeconomic History Marital status: Significant Other Spouse name: Not on file Number of children: Not on file Years of education: Not on file Highest education level: Not on file Occupational History Not on file Social Needs Financial resource strain: Not on file Food insecurity: Worry: Not on file Inability: Not on file Transportation needs: Medical: Not on file Non-medical: Not on file Tobacco Use Smoking status: Current Every Day Smoker Tobacco comment: 4 ciggs daily Substance and Sexual Activity Alcohol use: Not on file Drug use: Not on file Comment: Drug use: Yes Sexual activity: Not on file Lifestyle Physical activity: Days per week: Not on file Minutes per session: Not on file Stress: Not on file Relationships Social connections: Talks on phone: Not on file Gets together: Not on file Attends mormonism service: Not on file Active member of club or organization: Not on file Attends meetings of clubs or organizations: Not on file Relationship status: Not on file Intimate partner violence: Fear of current or ex partner: Not on file Emotionally abused: Not on file Physically abused: Not on file Forced sexual activity: Not on file Other Topics Concern Not on file Social History Narrative Not on file Patient's medical history above reviewed and updated on 07/29/2019 Medications Current Outpatient Medications Medication Sig Dispense Refill aspirin 81 mg chewable tablet Take 81 mg by mouth daily. atorvaSTATin (LIPITOR) 20 mg tablet take 1 tablet by mouth once daily 0 dexamethasone (DECADRON) 4 mg tablet Take 2 tablets by mouth Daily. Take the day before , day of, and the day after chemotherapy infusion. 8 tablet 5 folic acid (FOLVITE) 400 MCG tablet Take 1 tablet by mouth Daily. During treatment with PEMEtrexed. (This dose found in most multi-vitamins.) lidocaine-prilocaine (EMLA) cream Apply generously to port site and cover with tegaderm or saran wrap 1 hour prior to chemo. 30 g 11 ondansetron (ZOFRAN) 8 MG tablet Take 1 tablet by mouth every 8 hours as needed (Nausea /Vomiting). 30 tablet 3 prochlorperazine 10 mg tablet Take 1 tablet by mouth every 6 hours as needed (Nausea/vo miting). 30 tablet 5 No current facility-administered medications for this visit. Medications reviewed and updated on 07/29/2019 Review of Systems Review of Systems Constitutional: Denies fatigue, fevers, chills, night sweats, pain, unexpected weight tenorio ge. HEENT: Denies blurred vision, double vision, tinnitus, mouth sores, difficulty swallowing, swollen lymph nodes. Skin: Denies rashes, ulcers, itching. Respiratory: Denies shortness of breath, coughing, wheezing, sputum production, hemoptysis , stridor. Cardiovascular: Denies chest pain, palpitations, orthopnea, peripheral edema. Gastrointestinal: Denies nausea, vomiting, diarrhea, constipation, hematemesis, melena, he matochezia, mark-colored stools, decreased appetite. Genitourinary: Denies hematuria, dysuria, increased nocturia, urinary urgency, urinary inc ontinence. Musculoskeletal: Denies muscle weakness, calf tenderness, muscle pain, joint pain, bone pa in. Neurologic: Denies numbness of extremities, tingling of extremities, headaches, dizziness, tremors, seizures, syncopal episodes, gait and balance disturbances. Psychiatric: Denies anxiety, depression, insomnia. Hematologic: Denies bleeding, bruising, recent history of blood clots. Physical Exam BP 108/70 | Pulse 85 | Temp 35.7 C (96.3 F) (Tympanic) | Resp 16 | SpO2 98% ECOG Performance Status: 0 Physical Exam General: Alert and oriented. In no acute distress. Affect appropriate. Skin: Warm, dry and intact without rashes or ulcers. HEENT: Conjunctivae are clear. Sclera anicteric. Oral mucosa is moist and pink without les ions or evidence of thrush. Neck: Supple, without thyroid enlargement or jugular vein distention. Pulmonary: I do not appreciate any wheezes, rales, or rhonchi. Respiratory effort relaxed. Cardiovascular: Regular rate and rhythm. I do not appreciate any murmurs, gallops, or rubs . Gastrointestinal: Abdomen is soft, nondistended, nontender. No masses are appreciated. No hepatosplenomegaly. Active bowel tones in all 4 quadrants. Lymphatics: There is no cervical, supraclavicular, axillary, or inguinal adenopathy. Musculoskeletal: No peripheral edema. Joints are without edema, erythema, warmth, or defor mity. Peripheral pulses intact. No cyanosis or varicosities. Psychiatric: No signs of depression or anxiety. Maintains good eye contact, asks appropria te questions, remains fully engaged. Labs and Imaging No results found for this or any previous visit (from the past 24 hour(s)). . Assessment Ms. Sendy Nixon is a pleasant 68 y.o. female with a Stage IVB (cT4, cN3, cM1c) PD-L1 5% positive, EGFR and BRAF mutation negative moderately to poorly differentiated adenocarcinoma arising from the right upper lobe of the lung. I had a long discussion with the patient and her regarding her medical history to caren lemons. We went over the results of her imaging studies and pathology. We discussed that [facility] stage IV lung cancer is incurable, that there are certainly many treatment options that are available for patients like Sendy who has a good performance status. Her tumor has been tested for EGFR and BRAF which are both negative for mutations. Althoug h unlikely to be positive, I will send her tumor for ALK and ROS 1 testing as well. In the meantime, I would like for her to undergo complete staging which will include an MRI of the brain as well as a PET scan to determine the extent of her disease beyond what we al ready know. We discussed palliative chemotherapy/immunotherapy comprising carboplatin, pemetrexed, and pembrolizumab. We discussed the logistics of, rationale for and side effects of this regimen which include, but are not limited to, myelosuppression, neutropenia and thrombocytopenia, skin rash, hand-food syndrome, mucositis, diarrhea, nausea and vomiting, elevation in serum transaminases and bilirubin, fatigue, hypersensitivity reactions, peripheral neuropathy, pul monary, renal, hepatic and bladder toxicity, alopecia, infusion reaction, myalgias, fluid re tention, neuropathy, and possible leukemogenesis and MDS, peripheral edema, chest pain, fati cayden, skin rash, pruritus, hyponatremia, hypokalemia, hypomagnesemia, hypercalcemia, hyperkal emia, hypocalcemia, weight loss/gain, decreased appetite, nausea, constipation, colitis, temi rrhea, vomiting, abdominal pain, lymphocytopenia, anemia, thrombocytopenia, transaminitis, i ncreased alkaline phosphatase, arthralgias and myalgias, weakness, fatigue, changes in mood her behavior, dizziness, dyspnea, cough, pneumonia, fever, vasculitis, hypothyroidism, hyper thyroidism, adrenocortical insufficiency, pancreatitis, hepatitis, colitis, nephritis, incre ased bilirubin, uveitis, bronchitis, UTI, pneumonitis, renal insufficiency, myalgias and art hralgias, muscle weakness, among others. We discussed the need for steroid premedications a s recommended with dexamethasone 4 mg by mouth twice a day for 3 days starting the day befor e chemotherapy, as well as the recommendation for vitamin B12 1000 g IM every 9 weeks and daily oral folic acid. This regimen is given as follows: Carboplatin AUC 5 IV day 1, pemetrexed 500 mg/m IV day 1 and pembrolizumab 200 mg IV flat dose day 1 of a 21-day cycle for at least 4 cycles. Thi s is followed by maintenance pemetrexed and pembrolizumab which is given until progression o f disease or intolerable side effects. Given the myelosuppressive nature of this regimen an d her long travel distance, I am recommending the pegfilgrastim on body injector to be deliv ered on day 2. We discussed the side effect profile of filgrastim/TBO filgrastim/pegfilgras tan which include, but are not limited to myalgias, arthralgias, pain at injection site, tra nsaminitis, fever, allergic reactions, increased LDH, alkaline phosphatase, neutrophilia and splenic enlargement and splenic rupture. The patient agreed to proceed forth. We will send her to her surgeon, Dr. Martin for Mediport placement and after this is perform ed, we will plan on beginning treatment as soon as possible. The patient was grateful for all the time spent in today's consultation. Plan At the end of today's discussion, the patient expressed understanding and willingness to pr oceed with the plan as outlined below: 1. PET scan and MRI of the brain. 2. ALK and ROS 1 testing of her tumor. 3. Referral to her surgeon, Dr. Martin for Mediport placement. 4. The patient was given literature on the above chemotherapeutic agents. 5. The patient was counseled on the signs and symptoms of an ominous hematologic/oncologic process, and she knows to call if these were to occur. 6. The patient was counseled on the signs and symptoms that may indicate progression/recurr ence of her cancer, and she knows to call if this were to occur. All the patient's questions were answered to her satisfaction. The patient is to call with any questions or concerns. I would like to thank Dr. Martin for the courtesy of this referral. Krishna Omer MD [facility] Hematology & Oncology 07/29/2019 Portions of this chart may have been created with voice recognition software. Occasional wr arian-word or "sound-alike" substitutions may have occurred, even after review, due to the inh erent limitations of voice recognition software. Please read the chart carefully and recogni ze, using context, where these substitutions have occurred. Personal communication is reques devin for any clarifications. documented in this encou nter Plan of Treatment +--------+ + + + + | Date | Type | Specialty | Care Team | Description | +--------+ + + + + | 08/26/ | Appointment | Radiology | Krishna Omer MD | | | 2019 | | | [address] | | | | | | [place] | | | | | | [address] | | | | | | | | +--------+ + + + + | 08/28/ | Appointment | Infusion Therapy | Krishna Omer MD | | | 2019 | | | [address] | | | | | | [place] | | | | | | [address] | | | | | | | | +--------+ + + + + | 08/28/ | Office | Oncology | Krishna Omer MD | | | 2019 | Visit | | [address] | | | | | | [place] | | | | | | [address] | | | | | | | | +--------+ + + + + | 08/29/ | Appointment | Infusion Therapy | Krishna Omer MD | | | 2019 | | | [address] | | | | | | [place] | | | | | | [address] | | | | | | | | +--------+ + + + + | 09/05/ | Appointment | Infusion Therapy | Krishna Omer MD | | | 2019 | | | [address] | | | | | | [place] | | | | | | [address] | | | | | | | | +--------+ + + + + | 09/05/ | Office | Oncology | Krishna Omer MD | | | 2019 | Visit | | [address] | | | | | | [place] | | | | | | [address] | | | | | | | | | | | | Natalie Kerr | | | | | | ADRIENNE Iqbal [address] | | | | | | [address] | | | | | | [place] [address] | | | | | | [phone] | | | | | | | | +--------+ + + + + | 09/19/ | Appointment | Infusion Therapy | Krishna Omer MD | | | 2019 | | | [address] | | | | | | [place] | | | | | | [address] | | | | | | | | +--------+ + + + + | 09/19/ | Office | Oncology | Krishna Omer MD | | | 2019 | Visit | | [address] | | | | | | [place] | | | | | | [address] | | | | | | | | +--------+ + + + + | 09/19/ | Appointment | Infusion Therapy | Krishna Omer MD | | | 2019 | | | [address] | | | | | | [place] | | | | | | [address] | | | | | | | | +--------+ + + + + | 10/10/ | Appointment | Infusion Therapy | Krishna Omer MD | | | 2019 | | | [address] | | | | | | [place] | | | | | | [address] | | | | | | | | +--------+ + + + + | 10/10/ | Office | Oncology | Krishna Omer MD | | | 2019 | Visit | | [address] | | | | | | [place] | | | | | | [address] | | | | | | | | | | | | Sushma Orta, | | | | | | MEAL MILLER [address] | | | | | [address] | | | | | | [place] [address] | | | | | | [phone] | | | | | | | | +--------+ + + + + | 10/10/ | Appointment | Infusion Therapy | Krishna Omer MD | | | 2019 | | | [address] | | | | | | [place] | | | | | | [address] | | | | | | | | +--------+ + + + + | 10/30/ | Appointment | Infusion Therapy | Krishna Omer MD | | | 2019 | | | [address] | | | | | | [place] | | | | | | [address] | | | | | | | | +--------+ + + + + | 10/30/ | Office | Oncology | Krishna Omer MD | | | 2019 | Visit | | [address] | | | | | | [place] | | | | | | [address] | | | | | | | | +--------+ + + + + | 10/30/ | Appointment | Infusion Therapy | Krishna Omer MD | | | 2019 | | | [address] | | | | | | [place] | | | | | | [address] | | | | | | | | +--------+ + + + + + +---------+--------+ + + | Name | Type | Priori | Associated Diagnoses | Order Schedule | | | | ty | | | + +---------+--------+ + + | PET CT Skull Base To | Imaging | Routin | Malignant neoplasm | Expected: | | Mid Thigh | | e | of left lung, | 07/29/2019, Expires: | | | | | unspecified part of | 07/29/2020 | | | | | lung (HCC) | | + +---------+--------+ + + + + +--------+ + + | Name | Type | Priori | Associated Diagnoses | Order Schedule | | | | ty | | | + + +--------+ + + | AMB Referral to | Outpatient | Routin | Malignant neoplasm | Ordered: 07/29/2019 | | General Surgery | Referral | e | of left lung, | | | | | | unspecified part of | | | | | | lung (HCC) | | + + +--------+ + + documented as of this encounter Results Comprehensive Metabolic Panel (07/30/2019 9:54 AM PST) [...] | | | | | performed at [facility];[address] | | | | | [address] | | | | | | [address];[place] [address] | | | | | | | | | | + + + + + + + + | Specimen | + + | Blood | + + + + + + + | Performing | Address | City/State/Zipcode | Phone Number | | Organization | | | | + + + + + | REFERENCE LAB | [address] | [place] [address] | [phone] | | [facility] | Bl[address] | | | | LABORATORY | | | | + + + + + | REFERENCE LAB | [address] | [place] [address] | | | [facility] | Blvd[address] | | | | LABORATORY | | | | + + + + + CBC with Differential (07/30/2019 9:54 AM PST) [...] LAB | | | | performed at [facility];[address] | | [facility] | | | | [facility] | | LABORATORY | | | | [address];[place] [address] | | | | | | | | | | + + + + + + + + | Specimen | + + | Blood | + + + + + + + | Performing | Address | City/State/Zipcode | Phone Number | | Organization | | | | + + + + + | REFERENCE LAB | [address] | [place] [address] | [phone] | | [facility] | Blvd[address] | | | | LABORATORY | | | | + + + + + | REFERENCE LAB | [address] | [place] [address] | | | [facility] | Blvd. | | | | LABORATORY | | | | + + + + + documented in this encounter Visit Diagnoses + + | Diagnosis | + + | Malignant neoplasm of left lung, unspecified part of lung (HCC) - Primary | + + documented in this encounter
--- OUTSIDE RECORDS SUMMARY | ~2019-08-11 | XMS | Encounter Summary ---
Demographics + + + | Address | [address] | | | [place] [address] | + + + | Home Phone | | + + + | Preferred Language | Unknown | + + + | Marital Status | Unknown | + + + | Nondenominational Affiliation | 1009 | + + + | Race | Unknown | + + + | Ethnic Group | Unknown | + + + Author + + + | Author | [facility] | | | and Keoana | + + + | Organization | [facility] | | | and [place] | [...] [place] | | | | | [address] | | + + + + + Care Team Providers + +------+ + | Care Manufacturing Industrial Engineer Name | Role | Phone | + +------+ + PCP | Unavailable | + +------+ + Encounter Details +--------+ + + + + | Date | Type | Department | Care Team | Description | +--------+ + + + + | 03/18/ | Hospital | [facility] | Conversion | Pain | | 2017 | Encounter | CONVERSION [address] | Transaction, | | | | | [address] | Provider Unknown | | | | | [place] | [phone] | | | | | [address] | | | | | | [phone] | | | +--------+ + + + [...] [place] | | | | | | [address] | | | | | | | | +--------+ + + + + | 08/28/ | Appointment | Infusion Therapy | Krishna Omer MD | | | 2019 | | | [address] | | | | | | [place] | | | | | | [address] | | | | | | | | +--------+ + + + + | 08/28/ | Office | Oncology | Krishna Omer MD | | | 2019 | Visit | | [address] | | | | | | [place] | | | | | | [address] | | | | | | | | +--------+ + + + + | 08/29/ | Appointment | Infusion Therapy | Krishna Omer MD | | | 2019 | | | [address] | | | | | | [place] | | | | | | [address] | | | | | | | | +--------+ + + + + | 09/05/ | Appointment | Infusion Therapy | Krishna Omer MD | | | 2019 | | | [address] | | | | | | [place] | | | | | | [address] | | | | | | | | +--------+ + + + + | 09/05/ | Office | Oncology | Krishna Omer MD | | | 2019 | Visit | | [address] | | | | | | [place] | | | | | | [address] | | | | | | | | | | | | Natalie Kerr | | | | | | ADRIENNE Iqbal [address] | | | [address] | | | | | | [place] [address] | | | | | | [phone] | | | | | | | | +--------+ + + + + | 09/19/ | Appointment | Infusion Therapy | Krishna Omer MD | | | 2019 | | | [address] | | | | | | [place] | | | | | | [address] | | | | | | | | +--------+ + + + + | 09/19/ | Office | Oncology | Krishna Omer MD | | | 2019 | Visit | | [address] | | | | | | [place] | | | | | | [address] | | | | | | | | +--------+ + + + + | 09/19/ | Appointment | Infusion Therapy | Krishna Omer MD | | | 2019 | | | [address] | | | | | | [place] | | | | | | [address] | | | | | | | | +--------+ + + + + | 10/10/ | Appointment | Infusion Therapy | Krishna Omer MD | | | 2019 | | | [address] | | | | | | [place] | | | | | | [address] | | | | | | | | +--------+ + + + + | 10/10/ | Office | Oncology | Krishna Omer MD | | | 2019 | Visit | | [address] | | | | | | [place] | | | | | | [address] | | | | | | | | | | | | Sushma Orta, | | | | | | RECOVERY UNIT OPERATOR [address] | | | | [address] | | | | | | [place] [address] | | | | | | [phone] | | | | | | | | +--------+ + + + + | 10/10/ | Appointment | Infusion Therapy | Krishna Omer MD | | | 2019 | | | [address] | | | | | | [place] | | | | | | [address] | | | | | | | | +--------+ + + + + | 10/30/ | Appointment | Infusion Therapy | Krishna Omer MD | | | 2019 | | | [address] | | | | | | [place] | | | | | | [address] | | | | | | | | +--------+ + + + + | 10/30/ | Office | Oncology | Krishna Omer MD | | | 2019 | Visit | | [address] | | | | | | [place] | | | | | | [address] | | | | | | | | +--------+ + + + + | 10/30/ | Appointment | Infusion Therapy | Krishna Omer MD | | | 2019 | | | [address] | | | | | | [place] | | | | | | [address] | | | | | | | [...]
--- OUTSIDE RECORDS SUMMARY | ~2019-08-11 | XMS | Encounter Summary ---
Demographics + + + | Address | [address] | | | [place] [address] | + + + | Home Phone | | + + + | Preferred Language | Unknown | + + + | Marital Status | Unknown | + + + | Scientologist Affiliation | 1009 | + + + | Race | Unknown | + + + | Ethnic Group | Unknown | + + + Author + + + | Author | [facility] | | | and [place] | + + + | Organization | [facility] | | | and [...] [place] | | | | | [address] | | + + + + + Care Team Providers + +------+ + | Care Dental Equipment Repairer Name | Role | Phone | + +------+ + | Daniela Wei | PCP | | | PA-C | | | + +------+ + Encounter Details +--------+ + + + + | Date | Type | Department | Care Team | Description | +--------+ + + + + | 06/03/ | Orders Only | [facility] | Mayco Lange MD | Malignant neoplasm | | 2019 | | PULMONOLOGY [address] | [address] | of left lung, | | | | [address] | [place], [place] | unspecified part of | | | | [place], [place] | [address] | lung (HCC) (Primary | | | | [address] | | Dx) | | | | [phone] | | | +--------+ + + + [...] [place] | | | | | | [address] | | | | | | | | +--------+ + + + + | 08/28/ | Appointment | Infusion Therapy | Krishna Omer MD | | | 2019 | | | [address] | | | | | | [place] | | | | | | [address] | | | | | | | | +--------+ + + + + | 08/28/ | Office | Oncology | Krishna Omer MD | | | 2019 | Visit | | [address] | | | | | | [place] | | | | | | [address] | | | | | | | | +--------+ + + + + | 08/29/ | Appointment | Infusion Therapy | Krishna Omer MD | | | 2019 | | | [address] | | | | | | [place] | | | | | | [address] | | | | | | | | +--------+ + + + + | 09/05/ | Appointment | Infusion Therapy | Krishna Omer MD | | | 2019 | | | [address] | | | | | | [place] | | | | | | [address] | | | | | | | | +--------+ + + + + | 09/05/ | Office | Oncology | Krishna Omer MD | | | 2019 | Visit | | [address] | | | | | | [place] | | | | | | [address] | | | | | | | | | | | | Cirilo Natalie | | | | | | ADRIENNE Iqbal [address] | | | | [address] | | | | | | [place] [address] | | | | | | [phone] | | | | | | | | +--------+ + + + + | 09/19/ | Appointment | Infusion Therapy | Krishna Omer MD | | | 2019 | | | [address] | | | | | | [place] | | | | | | [address] | | | | | | | | +--------+ + + + + | 09/19/ | Office | Oncology | Krishna Omer MD | | | 2019 | Visit | | [address] | | | | | | [place] | | | | | | [address] | | | | | | | | +--------+ + + + + | 09/19/ | Appointment | Infusion Therapy | Krishna Omer MD | | | 2019 | | | [address] | | | | | | [place] | | | | | | [address] | | | | | | | | +--------+ + + + + | 10/10/ | Appointment | Infusion Therapy | Krishna Omer MD | | | 2019 | | | [address] | | | | | | [place] | | | | | | [address] | | | | | | | | +--------+ + + + + | 10/10/ | Office | Oncology | Krishna Omer MD | | | 2019 | Visit | | [address] | | | | | | [place] | | | | | | [address] | | | | | | | | | | | | Sushma Orta, | | | | | | ACUPUNCTURIST [address] | | | | | | [address] | | | | | | [place] [address] | | | | | | [phone] | | | | | | | | +--------+ + + + + | 10/10/ | Appointment | Infusion Therapy | Krishna Omer MD | | | 2019 | | | [address] | | | | | | [place] | | | | | | [address] | | | | | | | | +--------+ + + + + | 10/30/ | Appointment | Infusion Therapy | Krishna Omer MD | | | 2019 | | | [address] | | | | | | [place] | | | | | | [address] | | | | | | | | +--------+ + + + + | 10/30/ | Office | Oncology | Krishna Omer MD | | | 2019 | Visit | | [address] | | | | | | [place] | | | | | | [address] | | | | | | | | +--------+ + + + + | 10/30/ | Appointment | Infusion Therapy | Krishna Omer MD | | | 2019 | | | [address] | | | | | | [place] | | | | | | [address] | | | | | | | | +--------+ + + + + documented as of this encounter Visit Diagnoses + + | Diagnosis | + + | Malignant neoplasm of left lung, unspecified part of lung (HCC) - Primary | + + documented in this encounter"
--- OUTSIDE RECORDS SUMMARY | ~2019-08-11 | XMS | Encounter Summary ---
Demographics + + + | Address | [address] | | | [place] [address] | + + + | Home Phone | | + + + | Preferred Language | Unknown | + + + | Marital Status | Unknown | + + + | Voodoo Affiliation | 1009 | + + + | Race | Unknown | + + + | Ethnic Group | Unknown | + + + Author + + + | Author | [facility] | | | and [place] | + + + | Organization | [facility] | | | and [...] [place] | | | | | [address] | | + + + + + Care Team Providers + +------+ + | Care Acoustics Teacher Name | Role | Phone | + +------+ + PCP | Unavailable | + +------+ + Encounter Details +--------+ + + + + | Date | Type | Department | Care Team | Description | +--------+ + + + + | 03/18/ | Hospital | [facility] | Conversion | Pain | | 2017 | Encounter | CON[address] | Transaction, | | | | | [address] | Provider Unknown | | | | | [place] | [phone] | | | | | [address] | | | | | | [phone] | | | +--------+ + + + [...] [place] | | | | | | [address] | | | | | | | | +--------+ + + + + | 08/28/ | Appointment | Infusion Therapy | Krishna Oemr MD | | | 2019 | | | [address] | | | | | | [place] | | | | | | [address] | | | | | | | | +--------+ + + + + | 08/28/ | Office | Oncology | Krishna Omer MD | | | 2019 | Visit | | [address] | | | | | | [place] | | | | | | [address] | | | | | | | | +--------+ + + + + | 08/29/ | Appointment | Infusion Therapy | Krishna Omer MD | | | 2019 | | | [address] | | | | | | [place] | | | | | | [address] | | | | | | | | +--------+ + + + + | 09/05/ | Appointment | Infusion Therapy | Krishna Omer MD | | | 2019 | | | [address] | | | | | | [place] | | | | | | [address] | | | | | | | | +--------+ + + + + | 09/05/ | Office | Oncology | Krishna Omer MD | | | 2019 | Visit | | [address] | | | | | | [place] | | | | | | [address] | | | | | | | | | | | | Natalie Kerr | | | | | | ADRIENNE Iqbal [address] | | | | | [address] | | | | | | [place] [address] | | | | | | [phone] | | | | | | | | +--------+ + + + + | 09/19/ | Appointment | Infusion Therapy | Krishna Omer MD | | | 2019 | | | [address] | | | | | | [place] | | | | | | [address] | | | | | | | | +--------+ + + + + | 09/19/ | Office | Oncology | Krishna Omer MD | | | 2019 | Visit | | [address] | | | | | | [place] | | | | | | [address] | | | | | | | | +--------+ + + + + | 09/19/ | Appointment | Infusion Therapy | Krishna Omer MD | | | 2019 | | | [address] | | | | | | [place] | | | | | | [address] | | | | | | | | +--------+ + + + + | 10/10/ | Appointment | Infusion Therapy | Krishna Omer MD | | | 2019 | | | [address] | | | | | | [place] | | | | | | [address] | | | | | | | | +--------+ + + + + | 10/10/ | Office | Oncology | Krishna Omer MD | | | 2019 | Visit | | [address] | | | | | | [place] | | | | | | [address] | | | | | | | | | | | | Sushma Orta, | | | | | | MUSHROOM PICKER [address] | | | | | | [address] | | | | | | [place] [address] | | | | | | [phone] | | | | | | | | +--------+ + + + + | 10/10/ | Appointment | Infusion Therapy | Krishna Omer MD | | | 2019 | | | [address] | | | | | | [place] | | | | | | [address] | | | | | | | | +--------+ + + + + | 10/30/ | Appointment | Infusion Therapy | Krishna Omer MD | | | 2019 | | | [address] | | | | | | [place] | | | | | | [address] | | | | | | | | +--------+ + + + + | 10/30/ | Office | Oncology | Krishna Omer MD | | | 2019 | Visit | | [address] | | | | | | [place] | | | | | | [address] | | | | | | | | +--------+ + + + + | 10/30/ | Appointment | Infusion Therapy | Krishna Omer MD | | | 2019 | | | [address] | | | | | | [place] | | | | | | [address] | | | | | | | | +--------+ + + + + documented as of this encounter Procedures + +--------+ + + + | Procedure Name | Priori | Date/Time | Associated Diagnosis | Comments | | | ty | | | | + +--------+ + + + | CT CHEST HIGH | Routin | 03/08/2017 | | Results for this | | RESOLUTION WO | e | 7:52 PM | | procedure are in the | | CONTRAST | | PDT | | results section. | + +--------+ + + + documented in this encounter Results CT Chest High Resolution WO Contrast (03/08/2017 7:52 PM PDT) + + | Specimen | [...]
--- OUTSIDE RECORDS SUMMARY | ~2019-08-11 | XMS | Encounter Summary ---
Demographics + + + | Address | [address] | | | [place] [address] | + + + | Home Phone | | + + + | Preferred Language | Unknown | + + + | Marital Status | Unknown | + + + | Anabaptism Affiliation | 1009 | + + + | Race | Unknown | + + + | Ethnic Group | Unknown | + + + Author + + + | Author | [facility] | | | and [place] | + + + | Organization | [facility] | | | and [place] [...] [place] | | | | | [address] | | + + + + + Care Team Providers + +------+ + | Care Chief Digital Media Officer Name | Role | Phone | + [...] | | [address] | I, Furnace Liner | of left lung, | | | | [facility] [place] | | unspecified part of | | | | [address] | | lung (HCC) | | | | [phone] | | | +--------+ + + + [...] [place] | | | | | | [address] | | | | | | | | +--------+ + + + + | 08/28/ | Appointment | Infusion Therapy | Krishna Omer MD | | | 2019 | | | [address] | | | | | | [place] | | | | | | [address] | | | | | | | | +--------+ + + + + | 08/28/ | Office | Oncology | Krishna Omer MD | | | 2019 | Visit | | [address] | | | | | | [place] | | | | | | [address] | | | | | | | | +--------+ + + + + | 08/29/ | Appointment | Infusion Therapy | Krishna Omer MD | | | 2019 | | | [address] | | | | | | [place] | | | | | | [address] | | | | | | | | +--------+ + + + + | 09/05/ | Appointment | Infusion Therapy | Krishna Omer MD | | | 2019 | | | [address] | | | | | | [place] | | | | | | [address] | | | | | | | | +--------+ + + + + | 09/05/ | Office | Oncology | Krishna Omer MD | | | 2019 | Visit | | [address] | | | | | | [place] | | | | | | [address] | | | | | | | | | | | | aNtalie Kerr | | | | | | CARMEN IqbalP [address] | | | [address] | | | | | | [place] [address] | | | | | | [phone] | | | | | | | | +--------+ + + + + | 09/19/ | Appointment | Infusion Therapy | Krishna Omer MD | | | 2019 | | | [address] | | | | | | [place] | | | | | | [address] | | | | | | | | +--------+ + + + + | 09/19/ | Office | Oncology | Krishna Omer MD | | | 2019 | Visit | | [address] | | | | | | [place] | | | | | | [address] | | | | | | | | +--------+ + + + + | 09/19/ | Appointment | Infusion Therapy | Krishna Omer MD | | | 2019 | | | [address] | | | | | | [place] | | | | | | [address] | | | | | | | | +--------+ + + + + | 10/10/ | Appointment | Infusion Therapy | Krishna Omer MD | | | 2019 | | | [address] | | | | | | [place] | | | | | | [address] | | | | | | | | +--------+ + + + + | 10/10/ | Office | Oncology | Krishna Omer MD | | | 2019 | Visit | | [address] | | | | | | [place] | | | | | | [address] | | | | | | | | | | | | Sushma Orta, | | | | | | COMMUNITY SERVICE PATROL OFFICER [address] | | | [address] | | | | | | [place] [address] | | | | | | [phone] | | | | | | | | +--------+ + + + + | 10/10/ | Appointment | Infusion Therapy | Krishna Omer MD | | | 2019 | | | [address] | | | | | | [place] | | | | | | [address] | | | | | | | | +--------+ + + + + | 10/30/ | Appointment | Infusion Therapy | Krishna Omer MD | | | 2019 | | | [address] | | | | | | [place] | | | | | | [address] | | | | | | | | +--------+ + + + + | 10/30/ | Office | Oncology | Krishna Omer MD | | | 2019 | Visit | | [address] | | | | | | [place] | | | | | | [address] | | | | | | | | +--------+ + + + + | 10/30/ | Appointment | Infusion Therapy | Krishna Omer MD | | | 2020 | | | [address] | | | | | | [place] | | | | | | [address] | | | | | | | [...] LAB | | | | performed at [facility];[address] | | [facility] | | | | [place] | | LABORATORY | | | | [address];[place] [address] | | | | | | | | | | + + + + + + + + | Specimen | + + | Blood | + + + + + + + | Performing | Address | City/State/Zipcode | Phone Number | | Organization | | | | + + + + + | REFERENCE LAB | [address] [place] [address] | [place] [address] | [phone] | | [facility] | Blvd. | | | | LABORATORY | | | | + + + + + | REFERENCE LAB | [address] [place], [place] [address] | [place] [address] | | | [facility] | Blvd. | [...] W | | | | | | [facility] | | | | | | Blvd;[place] [address] | | | | | | | | | | + + + + + + + + | Specimen | + + | Blood | + + + + + + + | Performing | Address | City/State/Zipcode | Phone Number | | Organization | | | | + + + + + | REFERENCE LAB | [address] | [place] [address] | [phone] | | [facility] | Blvd. | | | | LABORATORY | | | | + + + + + | REFERENCE LAB | [address] | [place] [address] | | | [facility] | Blvd. | | | | LABORATORY | | | | + + + + + documented in this encounter Visit Diagnoses + + | Diagnosis | + + | Malignant neoplasm of left lung, unspecified part of lung (HCC) | + + documented in this encounter"
--- OUTSIDE RECORDS SUMMARY | ~2019-08-11 | XMS | Encounter Summary ---
Demographics + + + | Address | [address] | | | [place] [address] | + + + | Home Phone | | + + + | Preferred Language | Unknown | + + + | Marital Status | Unknown | + + + | Hoahaoism Affiliation | 1009 | + + + | Race | Unknown | + + + | Ethnic Group | Unknown | + + + Author + + + | Author | [facility] | | | and [place] | + + + | Organization | [facility] | | | and [...] [place] | | | | | [address] | | + + + + + Care Team Providers + +------+ + | Care Director Records Management Name | Role | Phone | + [...] | Transaction, | | | | [address] | Provider Unknown | | | | | [place], [place] | [phone] | | | | | [address] | | | | | | [phone] | | | +--------+ + + + [...] [place] | | | | | | [address] | | | | | | | | +--------+ + + + + | 08/28/ | Appointment | Infusion Therapy | Krishna Omer MD | | | 2019 | | | [address] | | | | | | [place] | | | | | | [address] | | | | | | | | +--------+ + + + + | 08/28/ | Office | Oncology | Krishna Omer MD | | | 2019 | Visit | | [address] | | | | | | [place] | | | | | | [address] | | | | | | | | +--------+ + + + + | 08/29/ | Appointment | Infusion Therapy | Krishna Omer MD | | | 2019 | | | [address] | | | | | | [place] | | | | | | [address] | | | | | | | | +--------+ + + + + | 09/05/ | Appointment | Infusion Therapy | Krishna Omer MD | | | 2019 | | | [address] | | | | | | [place] | | | | | | [address] | | | | | | | | +--------+ + + + + | 09/05/ | Office | Oncology | Krishna Omer MD | | | 2019 | Visit | | [address] | | | | | | [place] | | | | | | [address] | | | | | | | | | | | | Natalie Kerr | | | | | | ADRIENNE Iqbal [address] | | [address] | | | | | | [place] [address] | | | | | | [phone] | | | | | | | | +--------+ + + + + | 09/19/ | Appointment | Infusion Therapy | Krishna Omer MD | | | 2019 | | | [address] | | | | | | [place] | | | | | | [address] | | | | | | | | +--------+ + + + + | 09/19/ | Office | Oncology | Krishna Omer MD | | | 2019 | Visit | | [address] | | | | | | [place] | | | | | | [address] | | | | | | | | +--------+ + + + + | 09/19/ | Appointment | Infusion Therapy | Krishna Omer MD | | | 2019 | | | [address] | | | | | | [place] | | | | | | [address] | | | | | | | | +--------+ + + + + | 10/10/ | Appointment | Infusion Therapy | Krishna Omer MD | | | 2019 | | | [address] | | | | | | [place] | | | | | | [address] | | | | | | | | +--------+ + + + + | 10/10/ | Office | Oncology | Krishna Omer MD | | | 2019 | Visit | | [address] | | | | | | [place] | | | | | | [address] | | | | | | | | | | | | Sushma Orta, | | | | | | COMBINATION TECHNICIAN [address] | | | [address] | | | | | | [place] [address] | | | | | | [phone] | | | | | | | | +--------+ + + + + | 10/10/ | Appointment | Infusion Therapy | Krishna Omer MD | | | 2019 | | | [address] | | | | | | [place] | | | | | | [address] | | | | | | | | +--------+ + + + + | 10/30/ | Appointment | Infusion Therapy | Krishna Omer MD | | | 2019 | | | [address] | | | | | | [place] | | | | | | [address] | | | | | | | | +--------+ + + + + | 10/30/ | Office | Oncology | Krishna Omer MD | | | 2019 | Visit | | [address] | | | | | | [place] | | | | | | [address] | | | | | | | | +--------+ + + + + | 10/30/ | Appointment | Infusion Therapy | Krishna Omer MD | | | 2019 | | | [address] | | | | | | [place] | | | | | | [address] | | | | | | | | +--------+ + + + + documented as of this encounter Visit Diagnoses Not on filedocumented in this encounter"
--- OUTSIDE RECORDS SUMMARY | ~2019-08-11 | XMS | Encounter Summary ---
Demographics + + + | Address | [address] | | | [place] [address] | + + + | Home Phone | | + + + | Preferred Language | Unknown | + + + | Marital Status | Unknown | + + + | Shinto Affiliation | 1009 | + + + | Race | Unknown | + + + | Ethnic Group | Unknown | + + + Author + + + | Author | [facility] | | | and [place] | + + + | Organization | [facility] | | | and [place] | + + + | Address | Unknown | + + + | Phone | Unavailable | + + + Support + + + + + | Name | Relationship | Address | Phone | + + + + + | aMrquez Schulte | ECON | [address] | | | | | [place] | | | | | [address] | | + + + + + Care Team Providers + +------+ + | Care Parts Classifier Name | Role | Phone | + +------+ + | Daniela Wei | PCP | | | PA-C | | | + +------+ + Encounter Details +--------+ + + + + | Date | Type | Department | Care Team | Description | +--------+ + + + + | 06/03/ | Orders Only | [facility] | Mayco Lange MD | Malignant neoplasm | | 2019 | | PULMONOLOGY [address] | [address] | of left lung, | | | | [address] [place] | [place], [place] | unspecified part of | | | | [place], [place] | [address] | lung (HCC) (Primary | | | | [address] | | Dx) | | | | [phone] | | | +--------+ + + + [...] [place] | | | | | | [address] | | | | | | | | +--------+ + + + + | 08/28/ | Office | Oncology | Krishna Omer MD | | | 2019 | Visit | | [address] | | | | | | [place] | | | | | | [address] | | | | | | | | +--------+ + + + + | 08/29/ | Appointment | Infusion Therapy | Krishna Omer MD | | | 2019 | | | [address] | | | | | | [place] | | | | | | [address] | | | | | | | | +--------+ + + + + | 09/05/ | Appointment | Infusion Therapy | Krishna Omer MD | | | 2019 | | | [address] | | | | | | [place] | | | | | | [address] | | | | | | | | +--------+ + + + + | 09/05/ | Office | Oncology | Krishna Omer MD | | | 2019 | Visit | | [address] | | | | | | [place] | | | | | | [address] | | | | | | | | | | | | Cirilo Natalie | | | | | | ADRIENNE Iqbal [address] | [address] | | | | | | [place] [address] | | | | | | [phone] | | | | | | | | +--------+ + + + + | 09/19/ | Appointment | Infusion Therapy | Krishna Omer MD | | | 2019 | | | [address] | | | | | | [place] | | | | | | [address] | | | | | | | | +--------+ + + + + | 09/19/ | Office | Oncology | Krishna Omer MD | | | 2019 | Visit | | [address] | | | | | | [place] | | | | | | [address] | | | | | | | | +--------+ + + + + | 09/19/ | Appointment | Infusion Therapy | Krishna Omer MD | | | 2019 | | | [address] | | | | | | [place] | | | | | | [address] | | | | | | | | +--------+ + + + + | 10/10/ | Appointment | Infusion Therapy | Krishna Omer MD | | | 2019 | | | [address] | | | | | | [place] | | | | | | [address] | | | | | | | | +--------+ + + + + | 10/10/ | Office | Oncology | Krishna Omer MD | | | 2019 | Visit | | [address] | | | | | | [place] | | | | | | [address] | | | | | | | | | | | | Sushma Orta, | | | | | | BEFORE SCHOOL BABYSITTER [address] | | | | [address] | | | | | | [place] [address] | | | | | | [phone] | | | | | | | | +--------+ + + + + | 10/10/ | Appointment | Infusion Therapy | Krishna Omer MD | | | 2019 | | | [address] | | | | | | [place] | | | | | | [address] | | | | | | | | +--------+ + + + + | 10/30/ | Appointment | Infusion Therapy | Krishna Omer MD | | | 2019 | | | [address] | | | | | | [place] | | | | | | [address] | | | | | | | | +--------+ + + + + | 10/30/ | Office | Oncology | Krishna Omer MD | | | 2019 | Visit | | [address] | | | | | | [place] | | | | | | [address] | | | | | | | | +--------+ + + + + | 10/30/ | Appointment | Infusion Therapy | Krishna Omer MD | | | 2019 | | | [address] | | | | | | [place] | | | | | | [address] | | | | | | | | +--------+ + + + + documented as of this encounter Visit Diagnoses + + | Diagnosis | + + | Malignant neoplasm of left lung, unspecified part of lung (HCC) - Primary | + + documented in this encounter"
--- OUTSIDE RECORDS SUMMARY | ~2019-08-11 | XMS | Encounter Summary ---
Demographics + + + | Address | [address] | | | [place] [address] | + + + | Home Phone | | + + + | Preferred Language | Unknown | + + + | Marital Status | Unknown | + + + | Hoahaoism Affiliation | 1009 | + + + | Race | Unknown | + + + | Ethnic Group | Unknown | + + + Author + + + | Author | [facility] | | | and [place] | + + + | Organization | [facility] | | | and [...] [place] | | | | | [address] | | + + + + + Care Team Providers + +------+ + | Care Arch Support Maker Name | Role | Phone | + +------+ + PCP | Unavailable | + +------+ + Encounter Details +--------+ + + + + | Date | Type | Department | Care Team | Description | +--------+ + + + + | 03/18/ | Hospital | [facility] | Conversion | Pain | | 2017 | Encounter | CONVERSION [address] | Transaction, | | | | | [address] | Provider Unknown | | | | | [place] | [phone] | | | | | [address] | | | | | | [phone] | | | +--------+ + + + [...] [place] | | | | | | [address] | | | | | | | [...] [place] | | | | | | [address] | | | | | | | | +--------+ + + + + | 08/29/ | Appointment | Infusion Therapy | Krishna Omer MD | | | 2019 | | | [address] | | | | | | [place] | | | | | | [address] | | | | | | | | +--------+ + + + + | 09/05/ | Appointment | Infusion Therapy | Krishna Omer MD | | | 2019 | | | [address] | | | | | | [place] | | | | | | [address] | | | | | | | | +--------+ + + + + | 09/05/ | Office | Oncology | Krishna Omer MD | | | 2019 | Visit | | [address] | | | | | | [place] | | | | | | [address] | | | | | | | | | | | | Natalie Kerr | | | | | | ADRIENNE Iqbal [address] | | | | [address] | | | | | | [place] [address] | | | | | | [phone] | | | | | | | | +--------+ + + + + | 09/19/ | Appointment | Infusion Therapy | Krishna Omer MD | | | 2019 | | | [address] | | | | | | [place] | | | | | | [address] | | | | | | | | +--------+ + + + + | 09/19/ | Office | Oncology | Krishna Omer MD | | | 2019 | Visit | | [address] | | | | | | [place] | | | | | | [address] | | | | | | | | +--------+ + + + + | 09/19/ | Appointment | Infusion Therapy | Krishna Omer MD | | | 2019 | | | [address] | | | | | | [place] | | | | | | [address] | | | | | | | | +--------+ + + + + | 10/10/ | Appointment | Infusion Therapy | Krishna Omer MD | | | 2019 | | | [address] | | | | | | [place] | | | | | | [address] | | | | | | | | +--------+ + + + + | 10/10/ | Office | Oncology | Krishna Omer MD | | | 2019 | Visit | | [address] | | | | | | [place] | | | | | | [address] | | | | | | | | | | | | Sushma Orta, | | | | | | AGRICULTURE INSPECTOR [address] | | | | | | [address] | | | | | | [place] [address] | | | | | | [phone] | | | | | | | | +--------+ + + + + | 10/10/ | Appointment | Infusion Therapy | Krishna Omer MD | | | 2019 | | | [address] | | | | | | [place] | | | | | | [address] | | | | | | | | +--------+ + + + + | 10/30/ | Appointment | Infusion Therapy | Krishna Omer MD | | | 2019 | | | [address] | | | | | | [place] | | | | | | [address] | | | | | | | | +--------+ + + + + | 10/30/ | Office | Oncology | Krishna Omer MD | | | 2019 | Visit | | [address] | | | | | | [place] | | | | | | [address] | | | | | | | | +--------+ + + + + | 10/30/ | Appointment | Infusion Therapy | Krishna Omer MD | | | 2019 | | | [address] | | | | | | [place] | | | | | | [address] | | | | | | | [...]
--- OUTSIDE RECORDS SUMMARY | ~2019-08-11 | XMS | Clinical Summary ---
Demographics + + + | Address | [address] | | | [place] [address] | + + + | Home Phone | | + + + | Preferred Language | Unknown | + + + | Marital Status | Unknown | + + + | Jain Affiliation | 1009 | + + + | Race | Unknown | + + + | Ethnic Group | Unknown | + + + Author + + + | Author | [facility] | | | and [place] | + + + | Organization | [facility] | | | and [place] [...] [place] | | | | | [address] | | + + + + + Care Team Providers + +------+ + | Care Hardwood Floor Installation Helper Name | Role | Phone | + +------+ + | Daniela Wei | PCP | | | PA-C | | | + +------+ + Allergies No Known Allergies Medications + + + +---------+------+------+-------+ | Medication | Sig | Dispensed | Refills | Star | End | Statu | | | | | | t | Date | s | | | | | | Date | | | + + + +---------+------+------+-------+ | aspirin 81 mg | Take 81 mg by mouth | | 0 | 08/1 | | Activ | | chewable tablet | daily. | | | 20 | | e | | | | | | 17 | | | + + + +---------+------+------+-------+ | atorvaSTATin | take 1 tablet by | | 0 | 11/0 | | Activ | | (LIPITOR) 20 mg | mouth once daily | | | 20 | | e | | tablet | | | | 19 | | | + + + +---------+------+------+-------+ | | Apply generously to | 30 g | 11 | 12/1 | | Activ | | lidocaine-prilocaine | port site and cover | | | 01/31 | | e | | (EMLA) | with tegaderm or | | | 19 | | | | creamIndications: | saran wrap 1 hour | | | | | | | Malignant neoplasm | prior to chemo. | | | | | | | of left lung, | | | | | | | | unspecified part of | | | | | | | | lung (HCC) | | | | | | | + + + +---------+------+------+-------+ | dexamethasone | Take 2 tablets by | 8 | 5 | 12/1 | | Activ | | (DECADRON) 4 mg | mouth Daily. Take | tablet | | 6/20 | | e | | tabletIndications: | the day before, day | | | 19 | | | | Malignant neoplasm | of, and the day | | | | | | | of left lung, | after chemotherapy | | | | | | | unspecified part of | infusion. | | | | | | | lung (HCC) | | | | | | | + + + +---------+------+------+-------+ | prochlorperazine | Take 1 tablet by | 30 | 5 | 12/1 | | Activ | | 10 mg | mouth every 6 hours | tablet | | 6/20 | | e | | tabletIndications: | as needed | | | 19 | | | | Malignant neoplasm | (Nausea/vomiting). | | | | | | | of left lung, | | | | | | | | unspecified part of | | | | | | | | lung (HCC) | | | | | | | + + + +---------+------+------+-------+ | ondansetron | Take 1 tablet by | 30 | 3 | 12/1 | | Activ | | (ZOFRAN) 8 MG | mouth every 8 hours | tablet | | 6/20 | | e | | tabletIndications: | as needed | | | 19 | | | | Malignant neoplasm | (Nausea/Vomiting). | | | | | | | of left lung, | | | | | | | | unspecified part of | | | | | | | | lung (HCC) | | | | | | | + + + +---------+------+------+-------+ | folic acid | Take 1 tablet by | | 0 | 07/14 | | Activ | | (FOLVITE) 400 MCG | mouth Daily. During | | | 01/31 | | e | | tabletIndications: | treatment with | | | 19 | | | | Malignant neoplasm | PEMEtrexed. (This | | | | | | | of left lung, | dose found in most | | | | | | | unspecified part of | multi-vitamins.) | | | | | | | lung (HCC) | | | | | | | + + + +---------+------+------+-------+ Active Problems + + + | Problem | Noted Date | + + + | Malignant neoplasm of left lung, unspecified part of lung | 06/03/2019 | + + + + + | Cancer Staging: Clinical stage from 07/29/2019: Stage IVB (cT4, | | cN3, cM1c) - Signed by Krishna Omer MD on 07/29/2019 | + + | Overview: Added automatically from request for surgery | | [id number] | + + + + + | Lung nodule | 03/24/2017 | + + + | Tobacco abuse | 03/24/2017 | + + + Encounters +--------+ + + + + | Date | Type | Specialty | Care Team | Description | +--------+ + + + + | 08/08/ | Telephone | Oncology | Krishna Omer MD | Chemotherapy | | 2018 | | | | | +--------+ + + + + | 07/30/ | Orders Only | | Zulma Dorantes | Malignant neoplasm | | 2018 | | | I, Search Marketing Analyst | of left lung, | | | | | | unspecified part of | | | | | | lung (HCC) | +--------+ + + + + | 07/29/ | Office | Oncology | Krishna Omer MD | Malignant neoplasm | | 2018 | Visit | | | of left lung, | | | | | | unspecified part of | | | | | | lung (HCC) (Primary | | | | | | Dx) | +--------+ + + + + | 06/03/ | Orders Only | Pulmonology | Mayco Lange MD | Malignant neoplasm | | 2019 | | | | of left lung, | | | | | | unspecified part of | | | | | | lung (HCC) (Primary | | | | | | Dx) | +--------+ + + + + from Last 3 Months Family History + + +------+ + | Medical History | Relation | Name | Comments | + + +------+ + | Colon cancer | Brother | | | + + +------+ + | Lung cancer | Father | | | + + +------+ + | Alzheimer's disease | Mother | | | + + +------+ + + +------+ + + | Relation | Name | Status | Comments | + +------+ + + | Brother | | | | | | | (Age | | | | | 50) | | + +------+ + + | Brother | | | | + +------+ + + | Father | | | | | | | (Age | | | | | 57) | | + +------+ + + | Mother | | | | + +------+ + + Social History + +-------+ +--------+------+ [...] recent travel history available. | + + Last Filed Vital Signs + + + [...] + + + + | Weight | 62.1 kg (137 lb) | 03/24/2017 11:57 AM | | | | | PDT | | + + + + + | Height | 160 cm (5' 3") | 03/24/2017 11:57 AM | | | | | PDT | | + + + + + | Body Mass Index | 24.27 | 03/24/2017 11:57 AM | | | | | PDT | | + + + + + Plan of Treatment +--------+ + + + + | Date | Type | Specialty | Care Team | Description | +--------+ + + + + | 08/26/ | Appointment | Radiology | Krishna Omer MD | | | 2020 | | | [address] | | | | | | [place] | | | | | | [address] | | | | | | | | +--------+ + + + + | 08/28/ | Appointment | Infusion Therapy | Krishna Omer MD | | | 2019 | | | [address] | | | | | | [place] | | | | | | [address] | | | | | | | | +--------+ + + + + | 08/28/ | Office | Oncology | Krishna Omer MD | | | 2019 | Visit | | [address] | | | | | | [place] | | | | | | [address] | | | | | | | | +--------+ + + + + | 08/29/ | Appointment | Infusion Therapy | Krishna Omer MD | | | 2019 | | | [address] | | | | | | [place] | | | | | | [address] | | | | | | | | +--------+ + + + + | 09/05/ | Appointment | Infusion Therapy | Krishna Omer MD | | | 2019 | | | [address] | | | | | | [place] | | | | | | [address] | | | | | | | | +--------+ + + + + | 09/05/ | Office | Oncology | Krishna Omer MD | | | 2019 | Visit | | [address] | | | | | | [place] | | | | | | [address] | | | | | | | | | | | | Natalie Kerr | | | | | | ADRIENNE Iqbal [address] | | | [address] | | | | | | [place] [address] | | | | | | [phone] | | | | | | | | +--------+ + + + + | 09/19/ | Appointment | Infusion Therapy | Krishna Omer MD | | | 2019 | | | [address] | | | | | | [place] | | | | | | [address] | | | | | | | | +--------+ + + + + | 09/19/ | Office | Oncology | Krishna Omer MD | | | 2019 | Visit | | [address] | | | | | | [place] | | | | | | [address] | | | | | | | | +--------+ + + + + | 09/19/ | Appointment | Infusion Therapy | Krishna Omer MD | | | 2019 | | | [address] | | | | | | [place] | | | | | | [address] | | | | | | | | +--------+ + + + + | 10/10/ | Appointment | Infusion Therapy | Krishna Omer MD | | | 2019 | | | [address] | | | | | | [place] | | | | | | [address] | | | | | | | | +--------+ + + + + | 10/10/ | Office | Oncology | Krishna Omer MD | | | 2019 | Visit | | [address] | | | | | | [place] | | | | | | [address] | | | | | | | | | | | | Sushma Orta, | | | | | | GREASE MAN [address] | | | | | | [place] [address] | | | | | | [phone] | | | | | | | | +--------+ + + + + | 10/10/ | Appointment | Infusion Therapy | Krishna Omer MD | | | 2019 | | | [address] | | | | | | [place] | | | | | | [address] | | | | | | | | +--------+ + + + + | 10/30/ | Appointment | Infusion Therapy | Krishna Omer MD | | | 2019 | | | [address] | | | | | | [place] | | | | | | [address] | | | | | | | | +--------+ + + + + | 10/30/ | Office | Oncology | Krishna Omer MD | | | 2019 | Visit | | [address] | | | | | | [place] | | | | | | [address] | | | | | | | | +--------+ + + + + | 10/30/ | Appointment | Infusion Therapy | Krishna Omer MD | | | 2020 | | | [address] | | | | | | [place] | | | | | | [address] | | | | | | | | +--------+ + + + + + + + + + | Health Maintenance | Due Date | Last Done | Comments | + + + + + | Hepatitis C | | | | | Screening | 0 | | | + + + + + | Vaccine: | | | | | Dtap/Tdap/Td (1 - | 1 | | | | Tdap) | | | | + + + + + | Colorectal Cancer | | | | | Screening | 0 | | | | (Colonoscopy) | | | | + + + + + | Vaccine: Zoster (1 | | | | | of 2) | 0 | | | + + + + + | Breast Cancer | | | | | Screening | 5 | | | + + + + + | Vaccine: | | | | | Pneumococcal 65+ (1 | 5 | | | | of 2 - PCV13) | | | | + + + + + | Vaccine: Influenza | | | | | (#1) | 9 | | | + + + + + | Adult Annual | | | | | Wellness Visit | 9 | | | + + + + + | Statin Therapy | | | | | (optimal intensity) | 9 | | | + + + + + Procedures + +--------+ + + + | [...] | | + +--------+ + + + from Last 3 Months Results CBC with Differential (07/30/2019 9:54 AM [...] LAB | | | | performed at [facility];[address] | | [facility] | | | | [place] | | LABORATORY | | | | [address];[place] [address] | | | | | | | | | | + + + + + + + + | Specimen | + + | Blood | + + + + + + + | Performing | Address | City/State/Zipcode | Phone Number | | Organization | | | | + + + + + | REFERENCE LAB | [address] [place] [address] | [place] [address] | [phone] | | [facility] | Blvd[address] | | | | LABORATORY | | | | + + + + + | REFERENCE LAB | [address] [place] [address] | [place] [address] | | | [facility] | Blvd. | [...] | | | | | performed at [facility];[address] | | | | | | [facility] | | | | | | Blvd;[place] [address] | | | | | | | | | | + + + + + + + + | Specimen | + + | Blood | + + + + + + + | Performing | Address | City/State/Zipcode | Phone Number | | Organization | | | | + + + + + | REFERENCE LAB | [address] | [place] [address] | [phone] | | [facility] | Blvd. | | | | LABORATORY | | | | + + + + + | REFERENCE LAB | [address] | [place] [address] | | | [facility] | Blvd. | | | | LABORATORY | | | | + + + + + from Last 3 Months Insurance + +--------+ +--------+-------+---------+--------+ | Payer | Benefi | Subscriber | Effect | Phone | Address | Type | | | t Plan | ID | enrico | | | | | | / | | Dates | | | | | | Group | | | | | | + +--------+ +--------+-------+---------+--------+ | [employer] | [employer] | [id number] | 08/14/19 | | | Medica | | | HEALTH | | 17-Pre | | | re | | | MDCR | | sent | | | | + +--------+ +--------+-------+---------+--------+ | [employer] | [employer] | [id number] | 08/14/19 | | | Medica | | | HEALTH | | 17-Pre | | | re | | | MDCR | | sent | | | | + +--------+ +--------+-------+---------+--------+ + +--------+ +--------+ + + | Guarantor Name | Accoun | Relation to | Date | Phone | Billing Address | | | t Type | Patient | of | | | | | | | | | | + +--------+ +--------+ + + | Meaghan Ovalle | Person | Self [birth year] | [address] | | | al/Fam | | 1951 | [phone] | [place] [address] | | | mandeep | | | 2 (Home) | | + +--------+ +--------+ + + | Meaghan Ovalle | Person | Self [birth year] | [address] | | | al/Fam | | 1951 | [phone] | [place] [address] | | | mandeep | | | 2 (Home) | | + +--------+ +--------+ + + Advance Directives + + + + + | Type | Date Recorded | Patient | Explanation | | | | Head Paper Tester | | + + + + + | Power of | | | | | Automobile Service Advisor | | | | + + + + + | Advance | | | | | Directive | | | | + + + + +
--- OUTSIDE RECORDS SUMMARY | ~2019-08-11 | XMS | Encounter Summary ---
Demographics + + + | Address | [address] | | | [place] [address] | + + + | Home Phone | | + + + | Preferred Language | Unknown | + + + | Marital Status | Unknown | + + + | Buddhist Affiliation | 1009 | + + + | Race | Unknown | + + + | Ethnic Group | Unknown | + + + Author + + + | Author | [facility] | | | and [place] | + + + | Organization | [facility] | | | and [...] [place] | | | | | [address] | | + + + + + Care Team Providers + +------+ + | Care Mushroom Press Operator Name | Role | Phone | + +------+ + PCP | Unavailable | + +------+ + Encounter Details +--------+ + + + + | Date | Type | Department | Care Team | Description | +--------+ + + + + | 03/18/ | Hospital | [facility] | Conversion | Pain | | 2017 | Encounter | CONVERSION [address] | Transaction, | | | | | [address] | Provider Unknown | | | | | [place] | [phone] | | | | | [phone] | | | | | | [phone] | | | +--------+ + + + [...] [place] | | | | | | [address] | | | | | | | | +--------+ + + + + | 08/28/ | Appointment | Infusion Therapy | Krishna Omer MD | | | 2019 | | | [address] | | | | | | [place] | | | | | | [address] | | | | | | | | +--------+ + + + + | 08/28/ | Office | Oncology | Kirshna Omer MD | | | 2019 | Visit | | [address] | | | | | | [place] | | | | | | [address] | | | | | | | | +--------+ + + + + | 08/29/ | Appointment | Infusion Therapy | Krishna Omer MD | | | 2019 | | | [address] | | | | | | [place] | | | | | | [address] | | | | | | | | +--------+ + + + + | 09/05/ | Appointment | Infusion Therapy | Krishna Omer MD | | | 2019 | | | [address] | | | | | | [place] | | | | | | [address] | | | | | | | | +--------+ + + + + | 09/05/ | Office | Oncology | Krishna Omer MD | | | 2019 | Visit | | [address] | | | | | | [place] | | | | | | [address] | | | | | | | | | | | | Natalie Kerr | | | | | | ADRIENNE Iqbal [address] | [address] | | | | | | [place] [address] | | | | | | [phone] | | | | | | | | +--------+ + + + + | 09/19/ | Appointment | Infusion Therapy | Krishna Omer MD | | | 2019 | | | [address] | | | | | | [place] | | | | | | [address] | | | | | | | | +--------+ + + + + | 09/19/ | Office | Oncology | Krishna Omer MD | | | 2019 | Visit | | [address] | | | | | | [place] | | | | | | [address] | | | | | | | | +--------+ + + + + | 09/19/ | Appointment | Infusion Therapy | Krishna Omer MD | | | 2019 | | | [address] | | | | | | [place] | | | | | | [address] | | | | | | | | +--------+ + + + + | 10/10/ | Appointment | Infusion Therapy | Krishna Omer MD | | | 2019 | | | [address] | | | | | | [place] | | | | | | [address] | | | | | | | | +--------+ + + + + | 10/10/ | Office | Oncology | Krishna Omer MD | | | 2019 | Visit | | [address] | | | | | | [place] | | | | | | [address] | | | | | | | | | | | | Sushma Orta, | | | | | | [employer] [address] | | [address] | | | | | | [place] [address] | | | | | | [phone] | | | | | | | | +--------+ + + + + | 10/10/ | Appointment | Infusion Therapy | Krishna Omer MD | | | 2019 | | | [address] | | | | | | [place] | | | | | | [address] | | | | | | | | +--------+ + + + + | 10/30/ | Appointment | Infusion Therapy | Krishna Omer MD | | | 2019 | | | [address] | | | | | | [place] | | | | | | [address] | | | | | | | | +--------+ + + + + | 10/30/ | Office | Oncology | Krishna Omer MD | | | 2019 | Visit | | [address] | | | | | | [place] | | | | | | [address] | | | | | | | | +--------+ + + + + | 10/30/ | Appointment | Infusion Therapy | Krishna Omer MD | | | 2019 | | | [address] | | | | | | [place] | | | | | | [address] | | | | | | | [...]
--- OUTSIDE RECORDS SUMMARY | ~2019-08-11 | XMS | Encounter Summary ---
Demographics + + + | Address | [address] | | | [place] [address] | + + + | Home Phone | | + + + | Preferred Language | Unknown | + + + | Marital Status | Unknown | + + + | Presybeterian Affiliation | 1009 | + + + | Race | Unknown | + + + | Ethnic Group | Unknown | + + + Author + + + | Author | [facility] | | | and Keoana | + + + | Organization | [facility] | | | and [...] [place] | | | | | [address] | | + + + + + Care Team Providers + +------+ + | Care Bed And Breakfast Innkeeper Name | Role | Phone | + [...] | part of lung | [place], | [address] | | | | | (HCC) | [place] [address] | Phone: | | | | | | Phone: | [phone] | | | | | | [phone] | Fax: | | | | | | Fax: | [phone] | | | | | | [phone] | | + + + + + [...] | | | | | (HCC) | [place] [address] | [place], [place] | | | | | Procedures | Phone: | [address] | | | | | PET CT Skull | [phone] | Phone: | | | | | Base To Mid | Fax: | [phone] | | | | | Thigh | [phone] | Fax: | | | | | | | [phone] | + +--------+ + + + + [...] | | / Oncology | Onc/New/Lung | [address] | | | | [address] | [address] | [address] | | | | | OPINION LUNG | [place], | [place], | | | | | NODULE | [place] | [place] [address] | | | | | w/CERVICAL | [address] | Phone: | | | | | LYMPHADENOPA | Phone: | [phone] | | | | | THY | [phone] | Fax: | | | | | | Fax: | [phone] | | | | | | [phone] | | + +--------+ + + + + Encounter Details +--------+---------+ + + + | Date | Type | Department | Care Team | Description | +--------+---------+ + + + | 07/29/ | Office | [facility] | Krishna Omer MD | Malignant neoplasm | | 2019 | Visit | HEMATOLOGY AND | [address] | of left lung, | | | | ONCOLOGY [address] | [place] | unspecified part of | | | | [address] | [address] | lung (HCC) (Primary | | | | [place] | | Dx) | | | | [address] | | | | | | [phone] | | | +--------+---------+ + + + [...] in this encounter Progress Notes Carol Sharma, Environmental Planner - 07/29/2019 8:30 AM PSTConsent for Carboplatin, Pemet rexed, Pembrolizumab, and Pegfilgrastim, was signed by Dr. Omer and witnessed by myself. Copy of consent was given to the patient at the time of today's visit 07/29/2019. Copy of c onsent was sent to medical records for scan. Krishna Horta MD - 07/29/2019 8:30 AM PSTFormatting of this note might be different from [facility] Initial Oncology Consultation Patient [...] mutation: Negative History of Present Illness Ms. Sendy Nixon is a pleasant 68 y.o. female with a 87-qrtx-ylao smoking history who was completely asymptomatic at [...] was seen by medical oncologist in the [place], [place] area. She states that the visit [...] file Gets together: Not on file Attends jehovah's witness service: Not on file Active member of [...] studies and pathology. We discussed that [facility] stage IV lung cancer is incurable, that [...] courtesy of this referral. Krishna Omer MD [facility] Hematology & Oncology 07/29/2019 Portions of [...] [place] | | | | | | [address] | | | | | | | | +--------+ + + + + | 08/28/ | Appointment | Infusion Therapy | Krishna Omer MD | | | 2019 | | | [address] | | | | | | [place] | | | | | | [address] | | | | | | | | +--------+ + + + + | 08/28/ | Office | Oncology | Krishna Omer MD | | | 2019 | Visit | | [address] | | | | | | [place] | | | | | | [address] | | | | | | | | +--------+ + + + + | 08/29/ | Appointment | Infusion Therapy | Krishna Omer MD | | | 2019 | | | [address] | | | | | | [place] | | | | | | [address] | | | | | | | | +--------+ + + + + | 09/05/ | Appointment | Infusion Therapy | Krishna Omer MD | | | 2019 | | | [address] | | | | | | [place] | | | | | | [address] | | | | | | | | +--------+ + + + + | 09/05/ | Office | Oncology | Krishna Omer MD | | | 2019 | Visit | | [address] | | | | | | [place] | | | | | | [address] | | | | | | | | | | | | Natalie Kerr | | | | | | ADRIENNE Iqbal [address] | | | | | | [address] | | | | | | [place] [address] | | | | | | [phone] | | | | | | | | +--------+ + + + + | 09/19/ | Appointment | Infusion Therapy | Krishna Omer MD | | | 2019 | | | [address] | | | | | | [place] | | | | | | [address] | | | | | | | | +--------+ + + + + | 09/19/ | Office | Oncology | Krishna Omer MD | | | 2019 | Visit | | [address] | | | | | | [place] | | | | | | [address] | | | | | | | | +--------+ + + + + | 09/19/ | Appointment | Infusion Therapy | Krishna Omer MD | | | 2019 | | | [address] | | | | | | [place] | | | | | | [address] | | | | | | | | +--------+ + + + + | 10/10/ | Appointment | Infusion Therapy | Krishna Omer MD | | | 2019 | | | [address] | | | | | | [place] | | | | | | [address] | | | | | | | | +--------+ + + + + | 10/10/ | Office | Oncology | Krishna Omer MD | | | 2019 | Visit | | [address] | | | | | | [place] | | | | | | [address] | | | | | | | | | | | | Sushma Orta, | | | | | | RN ADMISSIONS [address] | | | | | | [address] | | | | | | [place] [address] | | | | | | [phone] | | | | | | | | +--------+ + + + + | 10/10/ | Appointment | Infusion Therapy | Krishna Omer MD | | | 2019 | | | [address] | | | | | | [place] | | | | | | [address] | | | | | | | | +--------+ + + + + | 10/30/ | Appointment | Infusion Therapy | Krishna Omer MD | | | 2019 | | | [address] | | | | | | [place] | | | | | | [address] | | | | | | | | +--------+ + + + + | 10/30/ | Office | Oncology | Krishna Omer MD | | | 2019 | Visit | | [address] | | | | | | [place] | | | | | | [address] | | | | | | | | +--------+ + + + + | 10/30/ | Appointment | Infusion Therapy | Krishna Omer MD | | | 2019 | | | [address] | | | | | | [place] | | | | | | [address] | | | | | | | [...] | | | | | performed at [facility];[address] | | | | | | [address] | | | | | | Joe;[place] [address] | | | | | | | | | | + + + + + + + + | Specimen | + + | Blood | + + + + + + + | Performing | Address | City/State/Zipcode | Phone Number | | Organization | | | | + + + + + | REFERENCE LAB | [address] | [place] [address] | [phone] | | [facility] | Blvd. | | | | LABORATORY | | | | + + + + + | REFERENCE LAB | [address] | [place] [address] | | | [facility] | Blvd. | [...] LAB | | | | performed at [facility];[address] | | [facility] | | | | [facility] | | LABORATORY | | | | Blvd;[place] [address] | | | | | | | | | | + + + + + + + + | Specimen | + + | Blood | + + + + + + + | Performing | Address | City/State/Zipcode | Phone Number | | Organization | | | | + + + + + | REFERENCE LAB | [address] | [place] [address] | [phone] | | [facility] | Blvd. | | | | LABORATORY | | | | + + + + + | REFERENCE LAB | [address] | [place] [address] | | | [facility] | Blvd. | | | | LABORATORY | | | | + + + + + documented in this encounter Visit Diagnoses + + | Diagnosis | + + | Malignant neoplasm of left lung, unspecified part of lung (HCC) - Primary | + + documented in this encounter
--- OUTSIDE RECORDS SUMMARY | ~2019-08-11 | XMS | Encounter Summary ---
Demographics + + + | Address | [address] | | | [place] [address] | + + + | Home Phone | | + + + | Preferred Language | Unknown | + + + | Marital Status | Unknown | + + + | Pentecostalism Affiliation | 1009 | + + + | Race | Unknown | + + + | Ethnic Group | Unknown | + + + Author + + + | Author | [facility] | | | and Keoana | + + + | Organization | [facility] | | | and [...] [place] | | | | | [address] | | + + + + + Care Team Providers + +------+ + | Care Stereoptician Name | Role | Phone | + [...] | | | 2017 | | [address] [facility] | [address] | | | | | [facility] [place] | [place] | | | | | [address] | [address] | | | | | [phone] | | | +--------+ + + + [...] [place] | | | | | | [address] | | | | | | | | +--------+ + + + + | 08/28/ | Appointment | Infusion Therapy | Krishna Omer MD | | | 2019 | | | [address] | | | | | | [place] | | | | | | [address] | | | | | | | | +--------+ + + + + | 08/28/ | Office | Oncology | Krishna Omer MD | | | 2019 | Visit | | [address] | | | | | | [place] | | | | | | [address] | | | | | | | | +--------+ + + + + | 08/29/ | Appointment | Infusion Therapy | Krishna Omer MD | | | 2019 | | | [address] | | | | | | [place] | | | | | | [address] | | | | | | | | +--------+ + + + + | 09/05/ | Appointment | Infusion Therapy | Krishna Omer MD | | | 2019 | | | [address] | | | | | | [place] | | | | | | [address] | | | | | | | | +--------+ + + + + | 09/05/ | Office | Oncology | Krishna Omer MD | | | 2019 | Visit | | [address] | | | | | | [place] | | | | | | [address] | | | | | | | | | | | | Natalie Kerr | | | | | | ADRIENNE Iqbal [address] | | | | | | [address] | | | | | | [place] [address] | | | | | | [phone] | | | | | | | | +--------+ + + + + | 09/19/ | Appointment | Infusion Therapy | Krishna Omer MD | | | 2019 | | | [address] | | | | | | [place] | | | | | | [address] | | | | | | | | +--------+ + + + + | 09/19/ | Office | Oncology | Krishna Omer MD | | | 2019 | Visit | | [address] | | | | | | [place] | | | | | | [address] | | | | | | | | +--------+ + + + + | 09/19/ | Appointment | Infusion Therapy | Krishna Omer MD | | | 2019 | | | [address] | | | | | | [place] | | | | | | [address] | | | | | | | | +--------+ + + + + | 10/10/ | Appointment | Infusion Therapy | Krishna Omer MD | | | 2019 | | | [address] | | | | | | [place] | | | | | | [address] | | | | | | | | +--------+ + + + + | 10/10/ | Office | Oncology | Krishna Omer MD | | | 2019 | Visit | | [address] | | | | | | [place] | | | | | | [address] | | | | | | | | | | | | Sushma Orta, | | | | | | VEST PRESSER [address] | | | | [address] | | | | | | [place] [address] | | | | | | [phone] | | | | | | | | +--------+ + + + + | 10/10/ | Appointment | Infusion Therapy | Krishna Omer MD | | | 2019 | | | [address] | | | | | | [place] | | | | | | [address] | | | | | | | | +--------+ + + + + | 10/30/ | Appointment | Infusion Therapy | Krishna Omer MD | | | 2019 | | | [address] | | | | | | [place] | | | | | | [address] | | | | | | | | +--------+ + + + + | 10/30/ | Office | Oncology | Krishna Omer MD | | | 2019 | Visit | | [address] | | | | | | [place] | | | | | | [address] | | | | | | | | +--------+ + + + + | 10/30/ | Appointment | Infusion Therapy | Krishna Omer MD | | | 2019 | | | [address] | | | | | | [place] | | | | | | [address] | | | | | | | [...] | | | | | | P,CHROMATIN, DEAN OF MEN, SM | | | | | | DEAN OF MEN, SCL-70, CENTROMERE | | | | | [...] | | | | | MARKER FOR EDMRA'S | | | | | | GRANULOMATOSIS [...]
--- OUTSIDE RECORDS SUMMARY | ~2019-08-11 | XMS | Clinical Summary ---
Demographics + + + | Address | [address] | | | [place] [address] | + + + | Home Phone | | + + + | Preferred Language | Unknown | + + + | Marital Status | Unknown | + + + | Anglican Affiliation | 1009 | + + + | Race | Unknown | + + + | Ethnic Group | Unknown | + + + Author + + + | Author | [facility] | | | and Keoana | + + + | Organization | [facility] | | | and [place] | [...] [place] | | | | | [address] | | + + + + + Care Team Providers + +------+ + | Care Electromechanical Equipment Assembler Name | Role | Phone | + [...] automatically from request for surgery | | [phone] | + + + + + | [...] | | 2018 | | | I, Mat Maker | of left lung, | | | [...] [place] | | | | | | [address] | | | | | | | | +--------+ + + + + | 08/28/ | Appointment | Infusion Therapy | Krishna Omer MD | | | 2019 | | | [address] | | | | | | [place] | | | | | | [address] | | | | | | | | +--------+ + + + + | 08/28/ | Office | Oncology | Krishna Omer MD | | | 2019 | Visit | | [address] | | | | | | [place] | | | | | | [address] | | | | | | | | +--------+ + + + + | 08/29/ | Appointment | Infusion Therapy | Krishna Omer MD | | | 2019 | | | [address] | | | | | | [place] | | | | | | [address] | | | | | | | | +--------+ + + + + | 09/05/ | Appointment | Infusion Therapy | Krishna Omer MD | | | 2019 | | | [address] | | | | | | [place] | | | | | | [address] | | | | | | | | +--------+ + + + + | 09/05/ | Office | Oncology | Krishna Omer MD | | | 2019 | Visit | | [address] | | | | | | [place] | | | | | | [address] | | | | | | | | | | | | Natalie Kerr | | | | | | ADRIENNE Iqbal [address] | | | | | | [address] | | | | | | [place] [address] | | | | | | [phone] | | | | | | | | +--------+ + + + + | 09/19/ | Appointment | Infusion Therapy | Krishna Omer MD | | | 2019 | | | [address] | | | | | | [place] | | | | | | [address] | | | | | | | | +--------+ + + + + | 09/19/ | Office | Oncology | Krishna Omer MD | | | 2019 | Visit | | [address] | | | | | | [place] | | | | | | [address] | | | | | | | | +--------+ + + + + | 09/19/ | Appointment | Infusion Therapy | Krishna Omer MD | | | 2019 | | | [address] | | | | | | [place] | | | | | | [address] | | | | | | | | +--------+ + + + + | 10/10/ | Appointment | Infusion Therapy | Krishna Omer MD | | | 2019 | | | [address] | | | | | | [place] | | | | | | [address] | | | | | | | | +--------+ + + + + | 10/10/ | Office | Oncology | Krishna Omer MD | | | 2019 | Visit | | [address] | | | | | | [place] | | | | | | [address] | | | | | | | | | | | | Sushma Orta, | | | | | | WEDDING DAY COORDINATOR [address] | | | | [address] | | | | | | [place] [address] | | | | | | [phone] | | | | | | | | +--------+ + + + + | 10/10/ | Appointment | Infusion Therapy | Krishna Omer MD | | | 2019 | | | [address] | | | | | | [place] | | | | | | [address] | | | | | | | | +--------+ + + + + | 10/30/ | Appointment | Infusion Therapy | Krishna Omer MD | | | 2019 | | | [address] | | | | | | [place] | | | | | | [address] | | | | | | | | +--------+ + + + + | 10/30/ | Office | Oncology | Krishna Omer MD | | | 2019 | Visit | | [address] | | | | | | [place] | | | | | | [address] | | | | | | | | +--------+ + + + + | 10/30/ | Appointment | Infusion Therapy | Krishna Omer MD | | | 2020 | | | [address] | | | | | | [place] | | | | | | [address] | | | | | | | [...] LAB | | | | performed at [facility];[address] | | [facility] | | | | [address] | | LABORATORY | | | | Blvd;[place] [address] | | | | | | | | | | + + + + + + + + | Specimen | + + | Blood | + + + + + + + | Performing | Address | City/State/Zipcode | Phone Number | | Organization | | | | + + + + + | REFERENCE LAB | [address] [place] [address] | [place] [address] | [phone] | | [facility] | Blvd. | | | | LABORATORY | | | | + + + + + | REFERENCE LAB | [address] [place] [address] | [place] [address] | | | [facility] | Blvd. | [...] | | | | | performed at [facility];[address] | | | | | | [facility] | | | | | | Blvd;[place] [address] | | | | | | | | | | + + + + + + + + | Specimen | + + | Blood | + + + + + + + | Performing | Address | City/State/Zipcode | Phone Number | | Organization | | | | + + + + + | REFERENCE LAB | [address] | [place] [address] | [phone] | | [facility] | Blvd. | | | | LABORATORY | | | | + + + + + | REFERENCE LAB | [address] | [place] [address] | | | [facility] | Blvd. | [...] | [employer] | [employer] | [id number] | 08/14/19 | | | [employer] | | | HEALTH | | 17-Pre | | | re | | | MDCR | | sent | | | | + +--------+ +--------+-------+---------+--------+ | [employer] | [employer] | [id number] | 08/14/19 | | | [employer] | [...] | 1951 | [phone] | [place] [address] | | | mandeep | | | 2 (Home) | | + +--------+ +--------+ + + | Meaghan Ovalle | Person | Self [birth year] | [address] | | | al/Fam | | 1951 | [phone] | [place] [address] | | | mandeep | | | 2 (Home) | | + +--------+ +--------+ + + Advance Directives + + + + + | Type | Date Recorded | Patient | Explanation | | | | Gas Roller Operator | | + + + + + | Power of | | | | | Air Cargo Specialist Supervisor | | | | + + + + + | Advance | | | | | Directive | | | | + + + + +
[~2019-08-11 08:31] MED LIST changes: +IBUPROFEN600 MG PO; +OXYCODON-ACETA1 EAC2 PO; +TYLENOL EXTRA500 MG PO
[2019-08-11] MEDS ORDERED: VENTOLIN HFA18 GM INH (08:45)
--- NOTE | 2019-08-12 19:59 | EKG ---
[facility] [address] [place] [address] Signed Normal sinus rhythm Low voltage QRS ST \T\ T wave abnormality, consider lateral ischemia Abnormal ECG When compared with ECG of 11-FEB-2017 18:25, QRS voltage has decreased Nonspecific T wave abnormality now evident in Inferior leads T wave inversion now evident in Anterolateral leads Confirmed by JD VEGA MD ([id number]) on 08/12/2019 7:59:14 PM Electronically Signed By: JD VEGA MD 08/12/19 195 PATIENT NAME: SENDY NIXON Electrocardiogram DATE OF : 48 PHYSICIAN: JD VEGA MD REPORT #: [id number] REPORT IS CONFIDENTIAL AND NOT TO BE RELEASED WITHOUT AUTHORIZATION
== END 2019-08-11 13:00 | disposition short-term general hospital (02) ==
LOC: ED 08:31
DX: C34.11 Malignant neoplasm of upper lobe, right bronchus or lung (principal); I31.3 Pericardial effusion (noninflammatory); J90 Pleural effusion, not elsewhere classified; E78.00 Pure hypercholesterolemia, unspecified; Z87.891 Personal history of nicotine dependence; Z79.899 Other long term (current) drug therapy; Z79.82 Long term (current) use of aspirin
CPT/HCPCS: 71045; 71260; 80053; 84484; 85025; 85379; 93005; 93010; 96361; 99285-25; J1170; J7040; Q9967

== ENCOUNTER 2019-09-28 06:06 | Emergency (ER) | payer MEDICARE, MEDICAID ==
[~2019-09-28] VITALS: Ht 160 cm; Wt 49.0 kg
[~2019-09-28 06:06] MED LIST changes: +LEVOTHYROXINE50 MCG PO; +VENTOLIN HFA18 GM INH
[2019-09-28] MEDS ORDERED: DEXAMETHASONE4 MG PO (06:23)
[2019-09-28] MEDS ORDERED: FOLIC ACID1 MG PO (06:23)
[2019-09-28] MEDS ORDERED: POTASSIUM CHLO20 ME2 PO (06:24)
[2019-09-28] MEDS ORDERED: NORCO 5-325 TA1 EACH PO (09:22)
--- NOTE | 2019-09-28 11:37 | EKG ---
[facility] [address] [facility] [place] [address] Signed Normal sinus rhythm Nonspecific T wave abnormality Abnormal ECG When compared with ECG of 11-AUG-2019 08:40, No significant change was found Confirmed by JD VEGA MD ([id number]) on 09/28/2019 11:36:48 AM Electronically Signed By: JD VEGA MD 09/28/19 1137 PATIENT NAME: NIXONSENDY Electrocardiogram DATE OF : 48 PHYSICIAN: JD VEGA MD REPORT #: [id number] REPORT IS CONFIDENTIAL AND NOT TO BE RELEASED WITHOUT AUTHORIZATION
== END 2019-09-28 09:44 | disposition home or self-care (01) ==
LOC: ED 06:06
DX: C34.90 Malignant neoplasm of unspecified part of unspecified bronchus or lung (principal); E78.00 Pure hypercholesterolemia, unspecified; Z87.891 Personal history of nicotine dependence; Z79.899 Other long term (current) drug therapy
CPT/HCPCS: 71045; 71260; 80053; 83605; 83735; 84484; 85025; 93005; 93010; 99284-25; J1170; J2405; J3010; Q9967

== ENCOUNTER 2019-10-01 10:02 | Emergency (ER) | payer MEDICARE, MEDICAID ==
[~2019-10-01] VITALS: Ht 160 cm; Wt 49.0 kg
[~2019-10-01 10:02] MED LIST changes: +DEXAMETHASONE4 MG PO; +FOLIC ACID1 MG PO; +POTASSIUM CHLO20 ME2 PO
[2019-10-01] MEDS ORDERED: ZITHROMAX250 MG PO (14:59)
--- NOTE | 2019-10-01 20:10 | EKG ---
[facility] [address] [facility] [place] [address] Signed Sinus tachycardia with premature atrial complexes ST \T\ T wave abnormality, consider anterolateral ischemia Abnormal ECG When compared with ECG of 28-SEP-2019 06:15, premature atrial complexes are now present Inverted T waves have replaced nonspecific T wave abnormality in Lateral leads Confirmed by IOANA GA DO ([id number]) on 10/01/2019 8:10:43 PM Electronically Signed By: IOANA GA DO 10/01/192009 PATIENT NAME: SENDY NIXON Electrocardiogram DATE OF : 48 PHYSICIAN: IOANA GA DO REPORT #: [id number] REPORT IS CONFIDENTIAL AND NOT TO BE RELEASED WITHOUT AUTHORIZATION
== END 2019-10-01 15:07 | disposition home or self-care (01) ==
LOC: ED 10:02
DX: J18.9 Pneumonia, unspecified organism (principal); C34.90 Malignant neoplasm of unspecified part of unspecified bronchus or lung; Z87.891 Personal history of nicotine dependence; Z79.899 Other long term (current) drug therapy; Z79.82 Long term (current) use of aspirin
CPT/HCPCS: 71046; 80053; 81001; 83605; 83690; 83735; 84484; 85025; 93005; 93010; 96374; 99284-25

== ENCOUNTER 2019-10-18 16:59 | Inpatient (IN) | payer MEDICARE, MEDICAID ==
[~2019-10-18] VITALS: Ht 162.6 cm; Wt 60.3 kg
[~2019-10-18 16:59] MED LIST changes: +ZITHROMAX250 MG PO
--- NOTE | 2019-10-18 23:00 | NUR ---
PT ARRIVED IN CCU AT 2210. PT IS AAOX4, OVERALL VERY WEAK AT THIS TIME. RUL AND RLL HAVE RONCHI PRESENT, ALL OTHER LOBES ARE CLEAR BUT DIMINISHED. ABD SOUNDS ARE PRESENT BUT ABD IS MILDLY DISTENDED. NO PERIPHERAL EDEMA IS PRESENT. LEVOPHED DRIP STILL AT 2.5. V/S ARE WDL OVERALL. WILL CONTINUE TO MONITOR.
--- NOTE | 2019-10-18 23:52 | NUR ---
LEVOPHED DRIP INCREASED TO 6.5MCG AT THIS TIME FOR A BP OF 88/55 (64). PT IS SLEEPING AT THIS TIME. OTHER V/S ARE WDL.
--- NOTE | 2019-10-19 00:30 | NUR ---
LEVOPHED DRIP REDUCED TO 4.0 MCG. ALL LOBES ARE COARSE AT THIS TIME. PT VOIDED ON THE BSC AND SEEMS STRONGER THAN DURING ADMISSION TO CCU. NO OTHER CHANGES HAVE BEEN NOTED.
--- NOTE | 2019-10-19 02:05 | NUR ---
PT AT THIS TIME IS SLEEPING. NO NEW CONCERNS NOTED.
--- NOTE | 2019-10-19 04:22 | NUR ---
LEVOPHED DRIP AT 2MCG AT THIS TIME. ALL LOBES ARE CLEAR AT THIS TIME. PT VIODED 650MLS. PAIN AT THIS TIME IS A 7/10, PAIN IS ON THE LEFT SIDE (RIBS), PRN NORCO WAS GIVEN, NO OTHER CHANGES WERE NOTED WITH THIS ASSESSMENT. V/S ARE WDL.
--- NOTE | 2019-10-19 06:02 | NUR ---
PAIN AT THIS TIME IS STILL A 7/10, PT HAS ALSO BEEN COUGHING A LOT WHICH I THINK CAUSES HER PAIN. PRN ROBITUSSIN AC WAS GIVEN. LEVOPHED DRIP AT 4MCG AT THIS TIME. NO OTHER CONCERNS NOTED AT THIS TIME.
--- NOTE | 2019-10-19 07:30 | NUR ---
PATIENT SHIFT REPORT RECIEVED FROM PINKING SEWING MACHINE OPERATOR RN. PATIENT RESTING IN BED AT THIS TIME. CALL LIGHT IN REACH. WILL CONTINUE TO CLOSELY MONITOR.
--- NOTE | 2019-10-19 08:43 | NUR ---
PATIENT ASSESSMENT COMPLETED. PATIENT ASSISTED UP TO THE CAMMODE AND TOLERATED WELL. PATIENT BREATH SOUNDS CLEAR ON LEFT AND DIMINISHED ON RIGHT SIDE. PATIENT HAS A CONGESTED COUGH. SOB WITH EXERTION. PATIENT BOWEL TONES ACTIVE BUT STATES SHE HAS NOT HAD A GOOD BM IN SEVERAL DAYS AND FEELS CONSTIPATED. PATIENT REQUESTS A SUPPOSITORY. NO OTHER NEEDS AT THIS TIME. PATIENT RESTING IN BED. WILL CONTINUE TO CLOSELY MONITOR.
--- NOTE | 2019-10-19 11:00 | NUR ---
AM MEDICATIONS HELD THIS AM AND GIVEN LATE D/T PATIENT, FAMILY, AND MD HAVING A CARE CONFERENCE ON CONTINUED PLAN OF CARE. PATIENT RESTING IN BED AT THIS TIME. PRN PAIN MEDICATION ADMINISTERED. PATIENT IS RESTING AND MORE RELAXED AND STATES "I REALLY HAVE NO PAIN NOW". WILL CONTINUE TO CLOSELY MONITOR.
--- NOTE | 2019-10-19 13:00 | NUR ---
PATIENT RESTING IN BED WITH FAMILY AT THE BEDSIDE. LUNCH ARRIVED. PATIENT DENIES ANY OTHER NEEDS AT THIS ITME. WILL CONINUE TO CLOSELY MONITOR.
--- NOTE | 2019-10-19 15:37 | NUR ---
PATIENTS LEVOPHED GTT AT 4MCG/MIN/MIN AND DECREASED TO 2MCG/MIN. WILL MONITOR PATIENT FOR EFFECTIVENESS. PATIENT ASSISTED UP TO THE CAMMODE AND TOLERATED WELL. PATIENT DENIES ANY OTHER NEEDS AT THIS TIME. WILL CONTINUE TO CLOSELY MONITOR.
[2019-10-19] MEDS ORDERED: LEVOTHYROXINE75 MCG PO (16:43)
[2019-10-19] MEDS ORDERED: TRAZODONE HCL50 MG PO (16:44)
--- NOTE | 2019-10-19 18:48 | NUR ---
LEVOPHED GTT STOPPED AT 1800. WILL CONTINUE TO CLOSELY MONITOR VITALS. PATIENT RESTING WITH FAMILY AT THE BEDSIDE. WILL CONTINUE TO CLOSELY MONITOR.
--- NOTE | 2019-10-19 20:30 | NUR ---
PT OVERALL SEEMS BETTER THIS EVENING. PT IS ON 4L O2 OXY MASK AND IS NOT ABLE TO TOLERATE RA. O2 SATS DROP TO THE MID 80'S ON RA. ALL LOBES AT THIS TIME ARE CLEAR/ DIMINISHED. PAIN CONTROL SO FAR SEEMS WDL, PT IS AAOX4, NO PERIPHERAL EDEMA NOTED, BP'S ARE MAINTAINING SO FAR WITHOUT LEVOPHED. WILL CONTINUE TO MONITOR.
--- NOTE | 2019-10-19 21:03 | NUR ---
pt USED CALL LIGHT TO ASK FOR ASSISTANCE WITH "TURNING THE LIGHTS DOWN". NOTHING FURTHER NEEDED AT THIS TIME.
--- NOTE | 2019-10-19 22:06 | NUR ---
PT IS SLEEPING AT THIS TIME. V/S ARE WDL. DRIP STILL ON STANDBY.
--- NOTE | 2019-10-20 00:45 | NUR ---
RIGHT LOBES HAVE INSPIRATORY WHEEZING PRESENT AT THIS TIME, LEFT LOBES ARE CLEAR. PAIN SEEMS TOLERABLE AT THIS TIME. PT AT THIS TIME IS STILL OFF LEVOPHED BUT BP'S ARE STARTING TO TREND DOWN WILL CONTINUE TO MONITOR.
--- NOTE | 2019-10-20 00:47 | NUR ---
DR ROWE UPDATED ON PTS POOR URINE OUTPUT AND OXYGEN SATURATIONS AT 86 PERCENT ON 9 L NC[address] TO [address] PT ON OXYMASK. PT CURRENTLY SATURATING AT 89 PERCENT ON [address] ROWE MAINTAIN SATS AT OR ABOVE 88 PERCENT IS GOAL. WILL CONTINUE TO CLOSELY MONITOR.
--- NOTE | 2019-10-20 03:26 | NUR ---
PT IS SLEEPING AT THIS TIME. BP'S ARE LOW BUT PT IS LAYING ON HER SIDE. WHEN ON HER LAYING ON HER BACK HER BP'S ARE WDL.
--- NOTE | 2019-10-20 05:00 | NUR ---
V/S ARE WDL AT THIS TIME. LEFT AC IV SITE WAS D/C DUE TO LEAKING. ALL LOBES HAVE EXPIRATORY WHEEZING PRESENT AT THIS TIME. OTHERWISE NO NEW CONCERNS NOTED.
--- NOTE | 2019-10-20 07:30 | NUR ---
PATIENT SHIFT REPORT FROM NIGHT RN. PATIENT RESTING IN BED AT THIS TIME. CALL LIGHT IN REACH. WILL CONTINUE TO CLOSELY MONITOR.
--- NOTE | 2019-10-20 08:00 | NUR ---
Shift report received. Pt is resting in bed. Pt reports pain level is at 8. Pt reports she is experiencing pain in her chest when she breaths. Pt was given dilaudid for her pain, it was well tolerated. Assessment completed. Expiratory wheezes in lung alvarez. Pt tranferred from her bed to the chair, with little assistance. Bedding was changed. Pt is sitting in her chair eating breakfast w/family at her side.
--- NOTE | 2019-10-20 11:30 | NUR ---
MD GONZALEZCH IN TO SEE PATIENT. PATIENT WILL BE TRANSFERING TO THE MEDICAL FLOOR. PATIENT AND FAMILY NOTIFIED AND AGREEABLE TO PLAN OF CARE. LUNCH IS ORDERED. PATIENT DENIES ANY OTHER NEEDS AT THIS TIME. WILL CONTINUE TO CLOSELY MONITOR.
--- NOTE | 2019-10-20 12:47 | NUR ---
PT TO MED SURG UNIT FROM CCU. PT ARRIVED, A&OX4. PT ON 4L NC, RESP EVEN AND NON LABORED. PT REPORTS 5/10 RIB/BACK PAIN. ORIENTED PT TO ROOM AND CALL LIGHT. PT REQUESTING PAIN MEDICATION. PERSONAL SUPPLIES AND CALL LIGHT WITHIN REACH. SISTER AT BEDSIDE. NO NEEDS AT THIS TIME.
--- NOTE | 2019-10-20 12:50 | NUR ---
REPORT GIVEN TO KAELYN WU AND UPDATED ON PLAN OF CARE. PATIENT TRANSFERED TO THE MEDICAL UNIT ROOM 111 VIA BED. PATIENT AND FAMILY ORIENTED TO NEW ROOM. UPDATED KAELYN THAT STAFF NEED TO CONTACT HOSPICE AND INITIATE PLAN OF CARE FOR TRANSITION HOME. NO OTHER NEEDS AT THIS TIME. ALL QUESTIONS ANSWERED.
--- NOTE | 2019-10-20 13:09 | NUR ---
PT DECLINED TO HAVE VITAL SIGNS TAKEN. LUNCH HERE FOR PT. ADMIN DILAUDID 2MG PO TAB FOR REPORTS OF 5/10 BACK/RIB PAIN.
--- NOTE | 2019-10-20 13:23 | NUR ---
ADMIN 1MG ATIVAN PO FOR INCREASED ANXIETY.
--- NOTE | 2019-10-20 13:59 | NUR ---
ADMIN ONE TAB NORCO 10/325 MG PO FOR REPORTS OF 8/10 RIB/BACK PAIN. PT HAS NO NEEDS AT THIS TIME. SISTER AT BEDSIDE. PERSONAL SUPPLIES AND CALL LIGHT WITHIN REACH.
--- NOTE | 2019-10-20 14:37 | NUR ---
PATIENT WAS UP SITTING IN THE CHAIR THIS AM FOR BREAKFAST AND TOLERATED WELL. PATIENT BACK IN BED AT THIS TIME. PATIENT HAS RECIEVED PRN PAIN MEDICATION AND IS DOING WELL AT THIS TIME. MD ROWE HERE AND WILL BE IN TO SEE PATIENT SHORTLY.
--- NOTE | 2019-10-20 16:12 | NUR ---
REMOVED FENTANYL 12.5MCG PATCH. NEW 25MCG FENTANYL PATCH PLACED LEFT SHOULDER PER DOC ORDER. ADMIN 25MCG IVP X1 PER DOC ORDER WELL. PT REPORTING 8/10 RIB/BACK PAIN.
--- NOTE | 2019-10-20 17:07 | NUR ---
ADMIN DILAUDID 2MG PO FOR REPORTS OF 6/10 RIB/BACK PAIN.
--- NOTE | 2019-10-20 17:27 | NUR ---
TRIED CALLING [facility] AGAIN. JUST RANG AND RANG AFTER "0" WAS PUSHED FOR WOOD BORER.
--- NOTE | 2019-10-20 18:30 | NUR ---
SPOKE WITH PT AND SISTER REGARDING PAIN CONTROL AND MORPHINE. THEY STATED THAT 40+ YEARS AGO THE PT MAY HAVE HAD A HALLUCINATION AFTER SURGERY WITH MORPHINE. PT STATES THAT SHE WOULD LIKE TO TRY MORPHINE, DOESN'T THINK SHE WILL HAVE ANY REACTION. THINKS THAT IT "WILL WORK BETTER" THAN WHAT SHE IS TAKING. "JUST TAKE THE PAIN AWAY". SISTER CONCURS. SPOKE WITH DR ROWE REGARDING THIS CONVERSTATION AND GAVE VERBAL ORDER FOR MORPHINE SL.
--- NOTE | 2019-10-20 18:39 | NUR ---
MORPHINE 5MG SL ADMIN AT THIS TIME FOR 8 RIB/BACK PAIN.
--- NOTE | 2019-10-20 19:39 | NUR ---
RECEIVED REPORT FROM MORNING SHIFT NURSE. PT IN BED, EYES CLOSED. SISYER IN THE ROOM. SHE IS RN AND WILL BE HELPING HER SISTER. PT REPORTED PAIN 01/21. SEE MAR FOR MEDS ADMINISTRATION.
--- NOTE | 2019-10-20 19:45 | NUR ---
PT TOOK HER MEDS WHOLE WITH WATER. ALERT, ORIENTED. PT ON COMFORT CARE.
--- NOTE | 2019-10-20 19:46 | NUR ---
SISTER REPORTED PT EXPERIENCING AIR HUNGER. JAZMIN CUELLAR HELPS WITH MED ADMINISTRATIONS.
--- NOTE | 2019-10-20 19:57 | NUR ---
pt C/O SOB, AIR HUNGER. ON FLOOR, NOTIFIED, ORDERS UPDATED. PRN MORPHINE ADMINSITERED. pt RESTING IN BED HOB ELEVATED ON 4L OXYGEN BY NC. CALL LIGHT IN REACH.
--- NOTE | 2019-10-20 21:09 | NUR ---
PT IN HER BED WITH EYES CLOSED. RESTING. APPEARS ASLEEP. BREATHING NORMALLY. NO DISTRESS OR AIR HUNGER NOTED. SISTER AT THE BED SIDE.
--- NOTE | 2019-10-20 21:56 | NUR ---
HELPED PT TO THE BATHROOM, VOIDED 400 ML CLEAN YEALLOW URINE. ALERT. REPORTED PAIN. SEE MAR FOR MEDS ADMINISTRATION. DONE WITH ASSESSMENT. PT BACK IN BED. EYES CLOSED. ON 4L OF O2. VSS WNL.
--- NOTE | 2019-10-21 00:01 | NUR ---
PT APPEARS ASLEEP, NO DISTRESS NOTED.
--- NOTE | 2019-10-21 01:41 | NUR ---
PT LAYING ON HER RIGH SIDE WITH EYES CLOSED. BREATHING NORMALLY. NO DISTRESS NOTED.
--- NOTE | 2019-10-21 03:43 | NUR ---
PT AWAKE, WENT TO THE BATHROOM. REPORTD PAIN 02/20. RN ALISA TURNED BED ALARM ON FOR SAFETY. SEE MAR FOR MEDICATION ADMINISTRATION.
--- NOTE | 2019-10-21 05:22 | NUR ---
PT DNR, PLAN OF CARE DISCHARGE HOME ON HOSPICE CARE. ON 6L OF O2, SPO2 MAINTENED 97-98%. FENTANYL 25 MCG/HR. PORT SITE ON RIGHT CHEST 20 GA. MORPHINE 5 MG SUBLINGUAL Q1 HOUR PRN WAS ADMINISTERED 3 TIMES DURING THIS SHIFT. LORAZEPAM ORDERED PRN Q4H PO. PT SPONTANEUS, BED ALARM IS ON FOR SAFETY.
--- NOTE | 2019-10-21 08:58 | NUR ---
PT REPORTS 7/10 GENERALIZED PAIN. PAIN INCREASES SIGNIFICATNLY WITH MOVEMENT. MEDICATED WITH PRN SL MORPHINE AND PO ATIVAN. SISTER EBER AT BEDSIDE. PT DROWSY AND OCC CONFUSED, ORIENTED X4 AT THIS TIME. ATE APPROX 25% OF BREAKFAST, SULY WELL. PT WAS 1PA TO BSC THIS AM, VOIDED WITHOUT DIFFICULTY. DENTON NEAL CHARGEBACK ANALYST CURRENTLY AT BEDSIDE TALKING WITH PT AND HER SISTER. CALL LIGHT WITHIN REACH.
--- NOTE | 2019-10-21 09:32 | NUR ---
TALKED WITH MARNIE AT HOSPICE AND SHE SAID SHE WILL HAVE THE CHART TO DR SUBRAMANIAN AND WILL LET ME KNOW IF SHE IS ACCEPTED. SCANNED CHART INCLUDING FACE SHEET, ER NOTES AND SUMMARY, H AND P, PROG NOTES, XRAY, AND LABS.
--- NOTE | 2019-10-21 10:10 | NUR ---
THIS RN TO ROOM WITH JAZMIN BRITT TO ASSIST WITH PT SHOWER. 1PA TRASFER TO SHOWER CHAIR. PTS SISTER ASSITING WITH SHOWER AND SHAMPOO. LINENS CHANGED. PORT A CATH DRESSING NOTED TO BE LOOSE. STERILE DRESSING CHANGED DONE PER PROTOCOL. NEW BIO PATCH APPLIED. PORT HEPARIN LOCKED PER PTS RN. ALCOHOL CAPS IN PLACE. PT UP TO CHAIR, WARM BLANKETS PROVIDED. SISTER AT BEDSIDE. CALL LIGHT WITHIN REACH. NO ADDITIONAL REQUESTS OR COMPLAINTS AT THIS TIME.
--- NOTE | 2019-10-21 10:10 | NUR ---
PT SISTER REQUESTED TO GET PT SHOWERED. PT MINIMAL ASSIST TO SHOWER CHAIR AND PT SISTER ASSISTED HER IN THE SHOWER. LINENS CHANGED. PT ASSISTED TO RECLINER AFTER SHOWER. YARIEL WU PROVIDING DRESSING CHANGE TO IMPLANTED PORT. SISTER AT BEDSIDE. CALL LIGHT WITHIN REACH.
--- NOTE | 2019-10-21 10:18 | NUR ---
RECEIVED A CALL FROM MARNIE AT [facility] WHO STATES THAT DR SUBRAMANIAN ACCEPTED HER INTO HOSPICE. THEY WILL HAVE THE EQUIPMENT DELIVERED IN THE MORNING AND THE NURSE WILL BE THERE TO ADMIT PT TO HOSPICE AT 1100. INFORMED PT AND HER SISTER.
--- NOTE | 2019-10-21 10:58 | NUR ---
PATIENT IN CHAIR, VISITORS IN ROOM. PATIENT RESTING. CALL LIGHT IN REACH. NO FURTHER NEEDS AT THIS TIME.
--- NOTE | 2019-10-21 11:23 | NUR ---
PT SITTING UP IN BED DOZING OFF, AROUSES EASILY TO VOICE. DENIES PAIN AT THIS TIME STATES "I JUST HAVE A JAB ONCE IN A WHILE BUT I'M FINE RIGHT NOW." MULTIPLE VISITORS AT BEDSIDE. CARE CART IN ROOM. CALL LIGHT WITHIN REACH.
--- NOTE | 2019-10-21 13:11 | NUR ---
PATIENT IN BED RESTING WITH EYES CLOSED. CALL LIGHT IN REACH. NO FURTHER NEEDS AT THIS TIME.
--- NOTE | 2019-10-21 13:51 | NUR ---
PT LYING IN BED, EYES CLOSED, APPEARS TO BE SLEEPING COMFORTABLY. RESP EVEN AND UNLABORED. CALL LIGHT WITHIN REACH, BED ALARM ON.
--- NOTE | 2019-10-21 16:35 | NUR ---
PT SISTER AT BEDSIDE REPORTS THAT SHE ASSISTED PT TO RESTROOM AND BACK TO BED. MEASURED MISSED VOID. PT AWAKE IN BED NOW REPORTS 8/10 BACK PAIN. MEDICATED WITH PRN MORPHINE AND ATIVAN PER PT AND SISTER REQUEST. NO FURTHER NEEDS OR CONCERNS AT THIS TIME. CALL LIGHT WITHIN REACH.
--- NOTE | 2019-10-21 18:05 | NUR ---
PT APPEARS TO BE SLEEPING, EYES CLOSED, RESP EVEN AND UNLABORED. SISTER AT BEDSIDE. DENIES NEEDS OR CONCERNS AT THIS TIME. CALL LIGHT WITHIN REACH. BED ALARM ON.
--- NOTE | 2019-10-21 18:50 | NUR ---
PATIENT IN BED RESTING. FAMILY IN ROOM. CALL LIGHT IN REACH. NO FURTHER NEEDS AT THIS TIME.
--- NOTE | 2019-10-21 19:47 | NUR ---
RECEIVED REPORT FROM MORNING SHIFT. PT IN BED, LAYING ON HER BACK. SISTER AT THE BEDSIDE, INVOLVED IN CARE, SUPPORTIVE. PT ALERT, BREATHING NORMALLY. NO DISTRESS NOTED, NO AIR HUNGER NOTED. DECREASED O2 FROM 4L TO 2L. SPO2 WAS 96-98% STABLE DURING THE DAY. FAMILY CAME FOR VISIT.
--- NOTE | 2019-10-21 20:15 | NUR ---
SISTER CAME OUT OF THE ROOM AND REPORTED PT HAS PAIN. PULLED OUT MEDICATIONS WITH SECOND RN. SEE MAR FOR MED ADMINISTRATION. PT REPORTED PAIN 01/21. APPEARS PT EXPIRIENSING AIR HUNGER. TURNED HER O2 UP TO 4 L.
--- NOTE | 2019-10-21 22:01 | NUR ---
PT CALLED FOR PAIN MEDICATION. STATED HER PAIN 01/21. SEE MAR FOR NEDICATIONS ADMINISTRATION. DONE WITH ASSESSMENT. PT LAYING ON HER BACK, BREATHING NORMALY, NO DISTRESS NOTED. ON 4L OF O2.VSS. RT IN THE ROOM ASSESSED LUNG SOUND WELL.
--- NOTE | 2019-10-21 22:40 | NUR ---
PT IN BED, LAYING ON HER BACK WITH EYES CLOSED. NO DISTRESS NOTED, APPEARS COMFORTABLE.
--- NOTE | 2019-10-21 23:52 | NUR ---
WENT INTO THE PT ROOM TO REASSESS FOR PAIN. PT IN BED, WITH EYES CLOSED, APPEARS ASLEEP. NC WAS OFF, SPO2 DROPPED TO 89 ON RA, PUT NC BACK ON, SPO2 UP TO 92% ON 4L OF O2. NO DISTRESS NOTED.
--- NOTE | 2019-10-22 05:16 | NUR ---
PT LOPEZ TO USE A BATHROOM. THIS NURSE AND JAZMIN CUELLAR WENT TO THE ROOM TO HELP SENDY AND ASSESS HER. PT USED BED SIDE COMMODE. UNSTEADY GAIT. VOIDED. PT ALERT, BACK TO BED. DENIED PAIN AT THAT MOMENT. STATED " I CAN WAIT, I AM OK". DLUIDS WERE OFFEED. DONE WITH ASSESSMENT. PT RESTING WITH HER EYES CLOSED. APPEARS COMFORTABLE. NO DISTRESS NOTED.
--- NOTE | 2019-10-22 05:27 | NUR ---
PT AWAKE, CALLED FOR HELP TO USE A BATHROOM. HELPED TO BED SIDE COMMODE. VOIDED WITHOUT DIFFICULTIES. REPORTED PAIN IN HER BACK 12/21. SEE MAR FOR MEDS ADMINISTRATION.
--- NOTE | 2019-10-22 05:41 | NUR ---
PT IN BED. WAS TALKING ABOUT HER GRNADSON, IN A GOOD MOOD; WILL RE-ASSESS NEMOMOIN IN A HALF PF HOUR
--- NOTE | 2019-10-22 05:45 | NUR ---
PT WOKE UP A COUPLE TIMES DURING THIS SHIFT. VOIDED, USED A BED SIDE COMMODE. PAIN WAS MANAGED WITH MORPHINE 5 MG WWITH GOOD EFFECT. VSS WNL. PT ALERT, COOPERATIVE, PLEASANT. FAMILY SUPPORTIVE, AT BED SIDE IN THE BEGINNING OF THE SHIFT. PT REMAINS HER SPO2 IN THE RANGE 96-98% ON 4L OF O2.
--- NOTE | 2019-10-22 06:35 | NUR ---
PT IN BED WITH HER EYES CLOSED, APPEARS ASLEEP. NO DISTRESS NOTED. CALL LIGHT IN REACH. BED IN LOW POSITION FOR SAFETY.
--- NOTE | 2019-10-22 08:10 | NUR ---
PT LYING IN BED APPEARS TO BE SLEEPING, EYES CLOSED RESP EVEN AND UNLABORED.
[2019-10-22] MEDS ORDERED: LEVOFLOXACIN750 MG PO (09:44)
[2019-10-22] MEDS ORDERED: LORAZEPAM1 MG PO (09:45)
[2019-10-22] MEDS ORDERED: MORPHINE S100 MG/5 M SL (09:45)
[2019-10-22] MEDS ORDERED: FENTANYL1 EACH TD (09:45)
--- NOTE | 2019-10-22 09:49 | NUR ---
PATIENT UP TO BSC AND THEN TO BED, 1A. PATIENT COMPLAINING PAIN WHILE BREATHING AND COUGHING, RN NOTIFIED. CALL LIGHT IN REACH. NO FURTHER NEEDS AT THIS TIME.
--- NOTE | 2019-10-22 10:05 | NUR ---
PT REPORTS SEVERE PAIN IN RIBS AND CHEST ESPECIALLY WITH INSPIRATION AND COUGH. MEDICATED WITH PRN SL MORHPINE AND PO ATIVAN. PT ALERT AND ORIENTED AT THIS TIME. AWARE THAT SHE WILL BE DISCHARGING TO GO HOME ON HOSPICE THIS MORNING. PORT DEACCESSED. PT STATES SHE IS HAVING TROUBLE SWALLOWING THIS MORNING SO SHE DOESN'T FEEL LIKE EATING. TOOK A SIP OF WATER WITH ATIVAN AND SULY WELL, NO COUGHING NOTED. CALL SISTER NOT PRESENT AT THIS TIME. CALL LIGHT WITHIN REACH.
--- NOTE | 2019-10-22 10:55 | NUR ---
PT CONT TO REPORT SEVERE PAIN WITH INCREASE IN COUGH. PT APPEARS ANXIOUS UPON SPEAKING WITH HER, STATES SHE FEELS LIKE SHE CAN'T BREATH AND IT HURTS TO BREATH. MEDICATED WITH PRN MORPHINE AND ROBATUSSIN. SISTER JUST SHOWING UP ASSISTING PT TO GET READY.
== END 2019-10-22 11:12 | disposition hospice, home (50) | DRG 871 ==
LOC: ED 16:59 → CCU 20:58 → MS 20:58
PROVIDERS: ADMIT Internal Medicine
PROC: 3E033XZ Introduction of Vasopressor into Peripheral Vein, Percutaneous Approach (ICD-10-PCS; principal; 2019-10-18)
DX: A41.9 Sepsis, unspecified organism (principal); J18.9 Pneumonia, unspecified organism; C34.90 Malignant neoplasm of unspecified part of unspecified bronchus or lung; I95.9 Hypotension, unspecified; M89.8X9 Other specified disorders of bone, unspecified site; T45.1X5A Adverse effect of antineoplastic and immunosuppressive drugs, initial encounter; K59.00 Constipation, unspecified; F17.200 Nicotine dependence, unspecified, uncomplicated; E78.5 Hyperlipidemia, unspecified; Z66 Do not resuscitate; Z51.5 Encounter for palliative care; Z79.82 Long term (current) use of aspirin; Z79.899 Other long term (current) drug therapy
CPT/HCPCS: 36415; 71045; 80048; 80053; 81001; 83605; 83735; 85025; 94760; 96361; 96374; 96375; 99284-25; J0696; J1170; J1650; J1956; J3010; J7030; J7060; J7121